=== PATIENT | female | born 1935 | race Caucasian/White ===

== ENCOUNTER → 2017-06-29 14:15 | Outpatient (CLI) | payer MEDICARE, OTHER, SELFPAY ==
--- NOTE | 2017-06-29 14:21 | CA_ITS ---
PROCEDURE: 2-D M-mode and color Doppler study INDICATIONS FOR THE TEST: Chest pain COPD Heart Murmur Tobacco Smoking Palpitations Fatigue Syncope Edema Hypertension Diabetes Mellitus Rheumatic Fever SOB TRAVIS Obesity HyperlipidemiaX Family History HD Additional History AF PATIENT INFORMATION HEIGHT: 63 WEIGHT:152 GENDER: Female B/P:152/72 2-D/M-MODE INTERPRETATION: 2-D MEASUREMENTS OBSERVED VALUES IN CMS Right Ventricular Dimension (RVDd) 2.8 Interventricular Septum (Thickness)(IVsd) .9 Left Ventricular Internal Dimensions(LVIDd) 4.7 Left Ventricular Posterior Wall (Thickness)(LVPWd) 1.1 Aortic Root 2.5 Aortic Cusp Separation 1.6 Left Atrial Dimensions (LAD) 3.9 2D 1. Left atrium is mildly enlarged, left ventricle is normal size, there is no concentric left ventricular hypertrophy, visually estimated ejection fraction 55% with no obvious regional wall motion abnormality. 2. The right atrium is mildly enlarged, right ventricle is normal size and contractility. 3. The aortic valve is minimally thickened and calcified. 4. The mitral valve has mitral annular calcification. 5. The pulmonic valve is poorly visualized. 6. The tricuspid valve leaflets are minimally thickened. 7. No significant pericardial effusion noted. DOPPLER INTERROGATION: Doppler interrogation of the aortic, mitral and tricuspid valvular presence of mild mitral and tricuspid regurgitation, calculated right ventricular systolic pressure is 47 mmHg consistent with the moderate pulmonary hypertension, diastolic parameters are inconclusive. CONCLUSION: 1. Mildly enlarged left atrium, normal left ventricular size, visually estimated ejection fraction 55% with no obvious regional wall motion abnormality, diastolic parameters are inconclusive. 2. Mild mitral and tricuspid regurgitation, calculated right ventricular systolic pressure is 47 mmHg consistent with moderate pulmonary hypertension. 3. No significant pericardial effusion noted.
== END ==
PROVIDERS: Family Provider Family Medicine; PCP Family Medicine; Visit Provider Family Medicine
DX: I48.0 Paroxysmal atrial fibrillation (principal); I34.0 Nonrheumatic mitral (valve) insufficiency; I50.30 Unspecified diastolic (congestive) heart failure
CPT/HCPCS: 93306

== ENCOUNTER → 2019-10-31 10:38 | Outpatient (CLI) | payer MEDICARE, SELFPAY ==
--- NOTE | 2019-10-31 10:43 | CA_ITS ---
APPROVED REPORT EXAM: Comprehensive 2D, Doppler, and color-flow Echocardiogram Skull Chopper: Dian Hernandez RDCS Ht: 5 ft 3 in Wt: 152lbs BSA: 1.72 BP: 150/70 mmHg Indications: AF,HTN,HLP 2D Dimensions LVOT 1.86 cm (M/F) 1.5-2.5 M-Mode Dimensions RVDd 2.77 cm (0.9-2.6) LVDd 5.47 cm (3.5-5.7) LVDs 3.57 cm (3.5-5.7) IVSd 0.68 cm (0.6-1.1) PWd 0.57 cm (0.6-1.1) EF (Teich) 63.40% FS 34.70% EDV (Teich) 145.60 mL ESV (Teich) 53.30 mL LV Diastology E/A Ratio 0.75 Aortic Valve LVOT Max 122.00 (70-110 cm/s) LVOT VTI 30.19 cm Mitral Valve MV A Velocity 100.00 (40-130 cm/s) Left Ventricle Left atrium is mildly enlarged, left ventricle is normal size, mild concentric left ventricular hypertrophy, visually estimated ejection fraction 55% with no regional wall motion abnormality, grade 1 diastolic dysfunction seen without tissue Doppler evidence of raise left atrial pressure. Right Ventricle Right atrium and right ventricle mildly enlarged with normal contractility. Aortic Valve Aortic valve is minimally thickened and fibrosed, there is no aortic stenosis or aortic insufficiency. Mitral Valve Mitral valve has mitral annular calcification, there is no mitral stenosis there is mild mitral regurgitation. Tricuspid Valve Tricuspid valve is grossly normal, there is mild tricuspid regurgitation. Tricuspid regurgitation jet velocity is inadequate for calculation of the right ventricular systolic pressure. Pulmonic Valve Pulmonic valve is poorly visualized. Great Vessels Aortic root is normal size. Pericardium No significant pericardial effusion noted. Conclusion 1. Biatrial enlargement, normal left ventricular size, mild concentric left ventricular hypertrophy, visually estimated ejection fraction 55% with no regional wall motion abnormality, grade 1 diastolic dysfunction seen without tissue Doppler evidence of raise left atrial pressure. 2. Mildly enlarged right ventricle with normal contractility. 3. Mild mitral and tricuspid regurgitation. 4. No significant pericardial effusion noted. Electronically signed by : Oli Renteria 10/31/2019 15:55:28
== END ==
PROVIDERS: PCP Family Medicine; Visit Provider Family Medicine
DX: I48.0 Paroxysmal atrial fibrillation (principal); I51.9 Heart disease, unspecified; I34.0 Nonrheumatic mitral (valve) insufficiency; I10 Essential (primary) hypertension
CPT/HCPCS: 93306

== ENCOUNTER 2020-03-14 06:35 | Emergency (ER) | payer MEDICARE, SELFPAY ==
[2020-03-14] VITALS (10 sets, daily range): BP systolic 136–185; BP diastolic 66–98; PULSE 57–113; RESP 16–26; TEMP 36.7–36.8; O2SAT 93–100; BMI 26.5; BMI 36.1
--- NOTE | 2020-03-14 06:32 | ECG_ITS ---
APPROVED REPORT Exam: Resting ECG HR:85 bpm ECG Measurements Heart Rate 85 AXES WV 134 P 30 QRSd 84 QRS -37 QT 402 T 72 QTc 478 Conclusion Sinus rhythm with occasional premature ventricular complexes and premature atrial complexes Left axis deviation Nonspecific ST and T wave abnormality Prolonged QT Abnormal ECG Electronically signed by : Kenneth London, 03/16/2020 19:43:06
--- NOTE | 2020-03-14 06:34 | HMH.EDGENADL ---
ED Disposition Condition on Discharge: Fair - Critical Care Critical Care Time: No <Christiano Sherwood - Last Filed: 03/14/20 07:44> <Lui Shah - Last Filed: 03/14/20 09:20> Clinical Impression: Dizzy Disposition: Xfer Short-Term Hosp Prescriptions: Meclizine HCl [Meclizine 25mg Tab] 25 mg PO QID PRN 10 Days #40 tab PRN Reason: Dizziness Transmission Status: Received by [facility] Referrals: PCP,No [Primary Care Provider] - Attestation: On 03/14/20, the high probability of a clinically significant, sudden or life threatening deterioration of the following system(s) required my full and direct attention, intervention and personal management. The time I documented below is in addition to time spent performing reported procedures but includes the following listed in this critical care notation. Medical Decision Making - Medical Records Medical records reviewed: Yes: I reviewed the patient's medical records. - Kike Inquiry Pt receiving controlled substance: No - Lab Data Result diagrams: 03/14/20 07:25 <Christiano Sherwood - Last Filed: 03/14/20 07:44> - Lab Data Result diagrams: 03/14/20 07:25 03/14/20 07:25 <Lui Shah - Last Filed: 03/14/20 09:20> Vital Signs: 03/14/20 06:34 03/14/20 07:00 03/14/20 07:30 Temperature 98.0 F Temperature Source Oral Pulse Rate [Apical] 78 62 59 L Respiratory Rate 26 H 17 16 Blood Pressure [Right Arm] 185/95 H 166/86 H 136/74 Blood Pressure Mean [Right Arm] 125 112 94 Blood Pressure Source [Right Arm] Automatic Cuff Automatic Cuff Blood Pressure Position [Right Arm] Supine Supine 02 Sat by Pulse Oximetry 97 93 L 97 Oxygen Delivery Method Room Air Room Air Room Air 03/14/20 08:00 03/14/20 08:30 03/14/20 09:00 Temperature Temperature Source Pulse Rate [Apical] 60 60 58 L Respiratory Rate 16 18 18 Blood Pressure [Right Arm] 145/74 H 166/84 H 166/80 H Blood Pressure Mean [Right Arm] 97 111 108 Blood Pressure Source [Right Arm] Automatic Cuff Blood Pressure Position [Right Arm] Sitting 02 Sat by Pulse Oximetry 96 100 99 Oxygen Delivery Method Room Air Room Air Room Air - Lab Data Lab Results 03/14/20 07:25: Troponin I 0.05 H 03/14/20 07:25: WBC 6.2, RBC 4.35, Hgb 14.2, Hct 41.8, MCV 96.1, MCH 32.6 H, MCHC 33.9, RDW 13.5, Plt Count 255, MPV 7.5, Neut % (Auto) 66.9, Lymph % (Auto) 22.0, [place] % (Auto) 5.9, Eos % (Auto) 4.7, Baso % (Auto) 0.3, Neut # (Auto) 4.2, Lymph # (Auto) 1.4, [place] # (Auto) 0.4, Eos # (Auto) 0.3, Baso # (Auto) 0.0 03/14/20 07:25: Sodium 136, Potassium 3.8, Chloride 105, Carbon Dioxide 27, Anion Gap 7.8, BUN 24 H, Creatinine 0.70, Estimated Creat Clear 54, Estimated GFR 80, Est GFR ( Amer) 96, Glucose 134 H, Calcium 8.6, Total Bilirubin 0.5, Direct Bilirubin 0.2, Conjugated Bilirubin 0.0, Indirect Bilirubin 0.3, Unconjugated Bilirubin 0.3, AST 26, ALT 17, Alkaline Phosphatase 126, Total Protein 6.4, Albumin 3.4 L 03/14/20 07:25: Magnesium 1.8 03/14/20 08:50: Urine Color Yellow, Urine Appearance Cloudy, Urine pH 7.0, Ur Specific M[place]ot 1.015, Urine Protein Negative, Urine Glucose (UA) Negative, Urine Ketones Negative, Urine Blood Negative, Urine Nitrate Negative, Urine Bilirubin Negative, Urine Urobilinogen 0.2, Ur Leukocyte Esterase 1+ A Orders (Tests/Meds): ED MEDICATIONS Generic Name Dose Route Start Last Admin Trade Name Freq PRN Reason Stop Dose Admin Sodium Chloride 10 ml 03/14/20 06:51 Sodium Chloride 0.9% 10ml Vial IV 04/13/20 06:50 NEEDED PRN to Dilute Lorazepam inj Discontinued Medications Generic Name Dose Route Start Last Admin Trade Name Freq PRN Reason Stop Dose Admin Sodium Chloride 1,000 mls @ 999 mls/hr 03/14/20 07:00 03/14/20 07:01 Sod Chlor 0.9% 1000ml Bag IV 03/14/20 08:00 999 mls/hr .Q1H1M DAGO Administration Iopamidol 100 ml 03/14/20 08:40 03/14/20 08:41 Iopamidol-370 (76%);100ml Bottle IV 03/14/20 08:41 100 ml ONCE ONE
--- NOTE | 2020-03-14 06:42 | XR_ITS ---
PROCEDURE: XR CHEST PORTABLE Referring Doctor: Christiano Sherwood Patient Age:84Y CLINICAL HISTORY: dizziness Episodic stable or symptoms COMPARISON: CR CXR CHEST(2 VIEWS-NOT PORTABLE) from 10/10/2014 FINDINGS: AP portable upright chest performed today slightly lordotic projection, and compared to September 2014. Slight coarsening markings towards lung bases appears to reflect some mild chronic changes with nothing definitely acute. No focal pneumonia. No pneumothorax but no pleural effusion. There is mild cardiomegaly. No overt CHF upper normal pulmonary vascularity. The renetta and mediastinal structures satisfactory IMPRESSION: Stable chest with nothing definitely acute Mild cardiomegaly. Minimal chronic appearing pulmonary changes similar to previous 2014 study Dictated by: Rafael Cardoso MD 03/14/2020 18:09 Rafael Cardoso MD in [place] 03/14/2020 18:09
--- NOTE | 2020-03-14 06:43 | CT_ITS ---
Procedure: CT ANGIO NECK CT ANGIO head. Referring Doctor: Christiano Sherwood Patient Age:84Y CLINICAL HISTORY: dizziness and getting 84-year-old COMPARISON: CT CT ANGIO HEAD from 03/14/2020 TECHNIQUE: IV Contrast: 100ml Isovue 370 bolus IV contrast followed normal saline Thin-section helical axial images obtained with axial, sagittal and coronal reformats. CTA mipp post processing on CT workstation performed-[address] scans at the facility use one or more dose reduction, viz: automated exposure control, ma/kV adjustment per patient size (including targeted exams where dose is matched to indication, i.e. head), or iterative reconstruction technique. FINDINGS: --CT angiography neck./CT angiography head: These studies are reviewed together Imaging begins at the aortic arch.. Satisfactory appearance of the great vessels arising from the left-sided aortic arch of minimal atherosclerotic calcification at the aortic arch. No evident the stenosis the origin of great vessels. Normal appearance partially imaged pulmonary artery Vertebrobasilar system and posterior circulation: The the Specifically note that the vertebral arteries origin identified and appears satisfactory bilaterally. Of I would note the are quite tortuous at the proximal most with T1 artery regions bilaterally the the the both vertebral arteries are similar size and a patent to the base of the skull where they unite to form a modest size basilar artery which then leads to the hzkkpp-zw-Iqasxp. At the mciomt-kr-Coallh I would note that there are of patent posterior communicating arteries bilaterally which appear to significantly contribute to the supply of the posterior cerebral arteries bilaterally.. The very small PICA and superior cerebellar artery are slightly branches from the basilar artery are slightly evident on the left than right . No abnormal enhancement is seen at either right or left CP angle region. No enhancing acoustic neuroma evident on these studies. IAC's appear symmetric. The mastoid air cells are appear well developed and clear. No mastoiditis. Middle ear well aerated and clear bilaterally the. Carotids; and anterior intracranial circulation of the origins the carotids appears satisfactory at the aortic arch. Moderately tortuous proximal Common carotid but no remarkable plaque. Common carotid does have medial course bilaterally at lower neck, residing posterior to the thyroid Right carotid bifurcation. Calcification at right bot carotid bifurcation extends into the origin of the right ICA where of where there is up toyield-up 20-25 % focal stenosis at origin of the right ICA. No not hemodynamically significant. Proximal right ICA lumen tapers slightly to 5.2 mm at its most narrow point.. The remainder of the right internal carotid artery appears satisfactory above this level To the the xskpci-no-Jvszjc. Left carotid bifurcation. Only scant non stenotic calcified plaque at the left carotid bifurcation. Of less than 5-10 percent narrowing at the proximal left internal carotid The mildly tortuous left internal carotid then continues are normal fashion to the vbmqnr-ng-Vvdbis . Demijb-dp-Mtbphn the. Generous caliber mildly ectatic proximal carotid siphons bilaterally with. Minimal atherosclerotic calcifications but no significant stenosis.. Normal branching appearance origins and distal branches the the middle cerebral artery bilaterally. Normal appearance to the both anterior cerebral arteries and unremarkable appearance at anterior communicating artery. No aneurysms nor vascular malformations identified at psbbnp-ms-Kkgcje nor elsewhere intracranial. No abnormal areas of enhancement at th
--- NOTE | 2020-03-14 06:43 | CT_ITS ---
Procedure: CT ANGIO NECK CT ANGIO head. Referring Doctor: Christiano Sherwood Patient Age:84Y CLINICAL HISTORY: dizziness and getting 84-year-old COMPARISON: CT CT ANGIO HEAD from 03/14/2020 TECHNIQUE: IV Contrast: 100ml Isovue 370 bolus IV contrast followed normal saline Thin-section helical axial images obtained with axial, sagittal and coronal reformats. CTA mipp post processing on CT workstation performed-[address] scans at the facility use one or more dose reduction, viz: automated exposure control, ma/kV adjustment per patient size (including targeted exams where dose is matched to indication, i.e. head), or iterative reconstruction technique. FINDINGS: --CT angiography neck./CT angiography head: These studies are reviewed together Imaging begins at the aortic arch.. Satisfactory appearance of the great vessels arising from the left-sided aortic arch of minimal atherosclerotic calcification at the aortic arch. No evident the stenosis the origin of great vessels. Normal appearance partially imaged pulmonary artery Vertebrobasilar system and posterior circulation: The the Specifically note that the vertebral arteries origin identified and appears satisfactory bilaterally. Of I would note the are quite tortuous at the proximal most with T1 artery regions bilaterally the the the both vertebral arteries are similar size and a patent to the base of the skull where they unite to form a modest size basilar artery which then leads to the oyagvd-pc-Elgqzs. At the egclal-ec-Oxqokk I would note that there are of patent posterior communicating arteries bilaterally which appear to significantly contribute to the supply of the posterior cerebral arteries bilaterally.. The very small PICA and superior cerebellar artery are slightly branches from the basilar artery are slightly evident on the left than right . No abnormal enhancement is seen at either right or left CP angle region. No enhancing acoustic neuroma evident on these studies. IAC's appear symmetric. The mastoid air cells are appear well developed and clear. No mastoiditis. Middle ear well aerated and clear bilaterally the. Carotids; and anterior intracranial circulation of the origins the carotids appears satisfactory at the aortic arch. Moderately tortuous proximal Common carotid but no remarkable plaque. Common carotid does have medial course bilaterally at lower neck, residing posterior to the thyroid Right carotid bifurcation. Calcification at right bot carotid bifurcation extends into the origin of the right ICA where of where there is up toyield-up 20-25 % focal stenosis at origin of the right ICA. No not hemodynamically significant. Proximal right ICA lumen tapers slightly to 5.2 mm at its most narrow point.. The remainder of the right internal carotid artery appears satisfactory above this level To the the qgoafj-rs-Oqyuqi. Left carotid bifurcation. Only scant non stenotic calcified plaque at the left carotid bifurcation. Of less than 5-10 percent narrowing at the proximal left internal carotid The mildly tortuous left internal carotid then continues are normal fashion to the wxgemi-nn-Riwrvi . Liasej-il-Fjnmop the. Generous caliber mildly ectatic proximal carotid siphons bilaterally with. Minimal atherosclerotic calcifications but no significant stenosis.. Normal branching appearance origins and distal branches the the middle cerebral artery bilaterally. Normal appearance to the both anterior cerebral arteries and unremarkable appearance at anterior communicating artery. No aneurysms nor vascular malformations identified at qpnemh-kq-Bvwhgv nor elsewhere intracranial. No abnormal areas of enhancement at th
[2020-03-14 07:37] LABS: Basophils % 0.3 % (0.1-2.0); Eosinophils # 0.3 K/mm3 (0.0-0.4); Eosinophils % 4.7 % (0.1-12.0); Hematocrit 41.8 % (37.0-47.0); Hemoglobin 14.2 g/dL (12.2-16.2); Lymphocytes # 1.4 K/mm3 (0.7-4.5); Mean Corpuscular HGB Conc 33.9 g/dL (31.8-35.4); Mean Corpuscular Hemoglobin 32.6 pg (27.0-31.2); Mean Corpuscular Volume 96.1 fl (81-99); Mean Platelet Volume 7.5 fl (7.4-10.4); Monocytes # 0.4 K/mm3 (0.1-1.0); Monocytes % 5.9 % (1.7-9.3); Neutrophils # 4.2 K/mm3 (1.8-7.8); Neutrophils % 66.9 % (37.0-80.0); Platelet Count 255 K/mm3 (142-424); Red Blood Count 4.35 M/mm3 (4.20-5.40); Red Cell Distribution Width 13.5 % (11.5-17.5); White Blood Count 6.2 K/mm3 (4.8-10.8)
[2020-03-14 07:41] LABS: Alanine Aminotransferase 17 U/L (12-78); Albumin Level 3.4 g/dl (3.5-5.0); Alkaline Phosphatase 126 U/L (38-126); Anion Gap 7.8 mEq/L (5-15); Aspartate Amino Transferase 26 U/L (14-36); Bilirubin,Direct 0.2 mg/dl (0.0-0.4); Bilirubin,Indirect 0.3 mg/dL (0.0-0.9); Bilirubin,Total 0.5 mg/dl (0.2-1.3); Bilirubin,Unconjugated 0.3 mg/dL (0.0-1.1); Blood Urea Nitrogen 24 mg/dl (7-17); Calcium 8.6 mg/dl (8.4-10.2); Carbon Dioxide 27 mmol/L (22.0-30.0); Chloride 105 mmol/L (98-107); Creatinine Clearance Estimated 54 mL/min (50-200); Estimated Glomerular Filt Rate 80 ml/min (>60); GFR (African American) 96 ML/MIN (>60); Glucose 134 mg/dl (74-100); Magnesium 1.8 mg/dl (1.6-2.3); Potassium 3.8 mmoL/L (3.5-5.1); Sodium 136 mmol/L (136-145); Total Protein,Serum 6.4 g/dl (6.3-8.2)
--- NOTE | 2020-03-14 07:57 | CT_ITS ---
PROCEDURE: CT HEAD/BRAIN WO CON Referring Doctor: Christiano Sherwood Patient Age:84Y CLINICAL INDICATION: dizziness COMPARISON: CT CT ANGIO NECK from 03/14/[address] ANGIO HEAD from 03/14/2020 TECHNIQUE: No IV contrast for this study. Standard axial images were obtained. All CT scans at the facility use one or more dose reduction, viz: automated exposure control, ma/kV adjustment per patient size (including targeted exams where dose is matched to indication, i.e. head), or iterative reconstruction technique. FINDINGS: No acute intracranial findings. No intracranial hemorrhage. Minimal cerebral atrophy age-appropriate. . Minimal physiologic calcification left basal ganglia more so than right most whiactually less apparent on the postcontrast studies t . Ventricles normal size with no hydrocephalus but.The ventricles and basal cisterns appear clear and satisfactory. No mass or midline shift nor mass effect. No subdural or extra-axial fluid collection is evident. Posterior fossa unremarkable. Skull intact- calvarium unremarkable appearance. Nomastoid effusions. Mastoid air cells are well developed and clear. Middle ear clear. IAC's symmetric. Moderate diffuse mucosal thickening at the ethmoid air cells with diffuse mucosal thickening at the the inferior maxillary sinuses.. No air-fluid levels IMPRESSION: No acute intracranial findings . incidental note: Moderate mucosal thickening throughout the ethmoid air cells Mild mucosal thickening inferior maxillary sinuses Dictated by: Rafael Cardoso MD 03/14/2020 09:02 Rafael Cardoso MD in [facility] 03/14/2020 09:02
[2020-03-14 07:59] LABS: Troponin I 0.05 ng/ml (0.00-0.034)
--- NOTE | 2020-03-14 09:01 | PC.NURSE ---
pt and family updated on plan of care
[2020-03-14 09:05] LABS: Microscopic, Urine URINE MICROSCOPIC (MICROSCOPIC)
[2020-03-14 09:06] LABS: Appearance,Urine CLOUDY (Clear); Bilirubin,Urine Negative (Negative); Blood, Urine Negative (Negative); Color,Urine YELLOW (Yellow); Glucose,Urine (UA) Negative (Negative); Ketones,Urine Negative (Negative); Leukocyte Esterase,Urine 1+ (Negative); Nitrate,Urine Negative (Negative); Protein,Urine Negative (Negative); Specific Gravity, Urine 1.015 (1.005-1.030); Urobilinogen,Urine 0.2 EU/dl (0.2)
--- NOTE | 2020-03-14 09:12 | PC.NURSE ---
[facility] called regarding possible transfer
[2020-03-14 09:54] LABS: RBC,Urine Occasional #/hpf (0-3)
[2020-03-14 09:55] LABS: Bacteria,Urine Trace /lpf
[2020-03-14 09:55] LABS: Coronavirus 19 IgG Antibody Positive (Negative); Coronavirus 19 IgM Antibody Negative (Negative)
== END 2020-03-14 11:20 | disposition short-term general hospital (02) ==
PROVIDERS: Physician Assistant; Emergency Provider Emergency Medicine
DX: R42 Dizziness and giddiness (principal); I48.91 Unspecified atrial fibrillation; E78.5 Hyperlipidemia, unspecified; Z01.84 Encounter for antibody response examination; Z88.5 Allergy status to narcotic agent
CPT/HCPCS: 70450; 70496; 70498; 71045; 80048; 80076; 81001; 83735; 84484; 85025; 86328; 87086; 93005; 96365; 96375; 99284; J2405; Q9967

== ENCOUNTER 2020-11-15 12:56 | Emergency (ER) | payer MEDICARE, SELFPAY ==
[2020-11-15] VITALS (14 sets, daily range): BP systolic 134–186; BP diastolic 69–90; PULSE 56–76; RESP 11–22; TEMP 36.6–36.8; O2SAT 95–98; BMI 31.8
--- NOTE | 2020-11-15 13:03 | CT_ITS ---
PROCEDURE INFORMATION: Exam: CT Head Without Contrast Exam date and time: 11/15/2020 1:03 PM Age: 85 years old Clinical indication: Injury or trauma; Fall; Concussion/head injury; Without loss of consciousness; Additional info: Trauma; Fall down 3 stairs TECHNIQUE: Imaging protocol: Computed tomography of the head without contrast. Radiation optimization: All CT scans at this facility use at least one of these dose optimization techniques: automated exposure control; mA and/or kV adjustment per patient size (includes targeted exams where dose is matched to clinical indication); or iterative reconstruction. COMPARISON: CT HEAD/BRAIN WO CON 03/14/2020 8:05 AM FINDINGS: Brain: Mild generalized cerebral volume loss and mild patchy white matter hypoattenuation, commonly secondary to chronic small vessel ischemic change. No evidence of acute ischemic infarction within constraints of limited axial single planar imaging technique. Suspect trace subarachnoid hemorrhage in the bilateral inferior frontal sulci, difficult to confirm lacking multiplanar imaging given clinical site imaging limitations. Cerebral ventricles: No ventriculomegaly. Paranasal sinuses: Moderate paranasal sinus mucosal thickening. Mastoid air cells: Visualized mastoid air cells are well aerated. Orbital cavity: Bilateral lens replacements. Bones/joints: No acute fracture. Soft tissues: Unremarkable. IMPRESSION: Suspect trace subarachnoid hemorrhage in the bilateral inferior frontal sulci, difficult to confirm lacking standard multiplanar imaging projections due to clinical site imaging limitations.
--- NOTE | 2020-11-15 13:03 | XR_ITS ---
PROCEDURE INFORMATION: Exam: XR Chest Exam date and time: 11/15/2020 1:03 PM Age: 85 years old Clinical indication: Injury or trauma; Fall; Blunt trauma (contusions or hematomas); Additional info: Trauma; Fall down 3 stairs TECHNIQUE: Imaging protocol: XR of the chest. Views: 4 or more views. COMPARISON: CR XR CHEST PORTABLE 03/14/2020 8:21 AM FINDINGS: Lungs: Unremarkable. No consolidation. Pleural spaces: Unremarkable. No pleural effusion. No pneumothorax. Heart/Mediastinum: Stable cardiac silhouette Bones/joints: Degenerative changes in the glenohumeral joints. The clavicles are not seen on this study. IMPRESSION: No acute process
--- NOTE | 2020-11-15 13:03 | XR_ITS ---
PROCEDURE INFORMATION: Exam: XR Right Shoulder Exam date and time: 11/15/2020 1:03 PM Age: 85 years old Clinical indication: Injury or trauma; Fall; Blunt trauma (contusions or hematomas); Shoulder; Right; Additional info: Trauma; Fall down 3 stairs TECHNIQUE: Imaging protocol: XR Right shoulder. Views: 2 or more views. COMPARISON: CR XR CHEST PORTABLE 03/14/2020 8:21 AM FINDINGS: Bones/joints: The clavicle is elevated with respect to the acromion on these images. This was not present on the images of the clavicle. 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 There is a lucency in the distal aspect of the clavicle which could represent nondisplaced fracture. Degenerative changes in the acromioclavicular joint and glenohumeral joint. Soft tissues: Normal. IMPRESSION: The clavicle is elevated with respect to the acromion on these images. This was not present on the images of the clavicle. 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 There is a lucency in the distal aspect of the clavicle which could represent nondisplaced fracture.
--- NOTE | 2020-11-15 13:03 | CT_ITS ---
PROCEDURE INFORMATION: Exam: CT Cervical Spine Without Contrast Exam date and time: 11/15/2020 1:03 PM Age: 85 years old Clinical indication: Injury or trauma; Fall; Sprain or strain, cervical ligaments; Additional info: Trauma; Fall down 3 stairs TECHNIQUE: Imaging protocol: Computed tomography images of the cervical spine without contrast. Radiation optimization: All CT scans at this facility use at least one of these dose optimization techniques: automated exposure control; mA and/or kV adjustment per patient size (includes targeted exams where dose is matched to clinical indication); or iterative reconstruction. COMPARISON: CT ANGIO NECK 03/14/2020 8:10 AM FINDINGS: Bones/joints: Nondisplaced right posterior 2nd rib fracture (series 3, image 55). Severe chronic appearing degenerative change about the dens with multiple osteophytes. No acute cervical spine fracture or traumatic malalignment. Discs/Spinal canal/Neural foramina: Severe multilevel facet arthrosis. Lungs: Lung apices are normal. Soft tissues: Unremarkable. IMPRESSION: 1. No acute cervical spine fracture or traumatic malalignment. 2. Nondisplaced right posterior 2nd rib fracture.
--- NOTE | 2020-11-15 13:03 | XR_ITS ---
PROCEDURE INFORMATION: Exam: XR Right Clavicle, Complete Exam date and time: 11/15/2020 1:03 PM Age: 85 years old Clinical indication: Injury or trauma; Fall; Blunt trauma (contusions or hematomas); Shoulder; Right; Additional info: Trauma; Fall down 3 stairs TECHNIQUE: Imaging protocol: XR Right clavicle complete. Views: Any number of views. COMPARISON: CR XR CHEST PORTABLE 03/14/2020 8:21 AM FINDINGS: Bones/joints: No fracture of the clavicle.. Degenerative changes in the acromioclavicular joint and glenohumeral joint. There is no evidence of acute fracture.There is no evidence of malalignment or dislocation. Soft tissues: Normal. IMPRESSION: 1. No fracture of the clavicle.. 2. There is no evidence of acute fracture.There is no evidence of malalignment or dislocation.
--- NOTE | 2020-11-15 13:03 | XR_ITS ---
PROCEDURE INFORMATION: Exam: XR Pelvis Exam date and time: 11/15/2020 1:03 PM Age: 85 years old Clinical indication: Injury or trauma; Fall; Blunt trauma (contusions or hematomas); Does not apply; Pelvic region; Additional info: Trauma; Fall down 3 stairs TECHNIQUE: Imaging protocol: XR pelvis. Views: 1 or 2 view. COMPARISON: No relevant prior studies available. FINDINGS: Bones/joints: Degenerative changes in both hips; There is no evidence of acute fracture.There is no evidence of malalignment or dislocation. Soft tissues: Unremarkable. IMPRESSION: There is no evidence of acute fracture.There is no evidence of malalignment or dislocation.
--- NOTE | 2020-11-15 13:15 | HMH.EDGENADL ---
ED Disposition Clinical Impression: Dislocation of AC joint, closed Qualifiers: Encounter type: initial encounter Laterality: right Qualified Code(s): S43.101A - Unspecified dislocation of right acromioclavicular joint, initial encounter Fall Qualifiers: Encounter type: initial encounter Qualified Code(s): W19.XXXA - Unspecified fall, initial encounter Head injury Qualifiers: Encounter type: initial encounter Qualified Code(s): S09.90XA - Unspecified injury of head, initial encounter Rib fracture Qualifiers: Encounter type: initial encounter Rib fracture type: single rib Fracture type: closed Laterality: right Qualified Code(s): S22.31XA - Fracture of one rib, right side, initial encounter for closed fracture Disposition: Home, Self-Care Condition on Discharge: Good Instructions: DI for Rib Fracture, DI for AC Joint Separation Prescriptions: Lidocaine [Lidoderm 5% transdermal patch] 1 each TP Q24H #10 patch Transmission Status: Pending to [facility] methocarbamoL [Methocarbamol 500mg Tablet] 750 mg PO TID 10 Days #30 tab Transmission Status: Pending to [facility] - Critical Care Critical Care Time: No Attestation: On , the high probability of a clinically significant, sudden or life threatening deterioration of the following system(s) required my full and direct attention, intervention and personal management. The time I documented below is in addition to time spent performing reported procedures but includes the following listed in this critical care notation. Medical Decision Making - Medical Records Medical records reviewed: Yes: I reviewed the patient's medical records. - Kike Inquiry Pt receiving controlled substance: No Vital Signs: 11/15/20 12:56 11/15/20 14:03 11/15/20 14:30 Temperature 98 F Temperature Source Oral Pulse Rate 56 L 62 Pulse Rate [Radial] 75 Respiratory Rate 20 18 11 L Blood Pressure 163/80 H 186/90 H Blood Pressure [Right Arm] 162/85 H Blood Pressure Mean Blood Pressure Mean [Right Arm] 110 Blood Pressure Position [Right Arm] Sitting 02 Sat by Pulse Oximetry 98 97 96 Oxygen Delivery Method Room Air 11/15/20 15:00 11/15/20 15:45 11/15/20 16:00 Temperature Temperature Source Pulse Rate 73 56 L 62 Pulse Rate [Radial] Respiratory Rate 14 11 L 22 Blood Pressure 169/88 H 170/89 H 158/87 H Blood Pressure [Right Arm] Blood Pressure Mean Blood Pressure Mean [Right Arm] Blood Pressure Position [Right Arm] 02 Sat by Pulse Oximetry 95 97 96 Oxygen Delivery Method 11/15/20 16:30 11/15/20 17:00 11/15/20 17:30 Temperature Temperature Source Pulse Rate 61 65 76 Pulse Rate [Radial] Respiratory Rate 16 14 14 Blood Pressure 140/75 134/70 141/69 H Blood Pressure [Right Arm] Blood Pressure Mean 96 88 98 Blood Pressure Mean [Right Arm] Blood Pressure Position [Right Arm] 02 Sat by Pulse Oximetry Oxygen Delivery Method 11/15/20 18:01 11/15/20 18:30 Temperature Temperature Source Pulse Rate 60 66 Pulse Rate [Radial] Respiratory Rate 17 14 Blood Pressure 144/80 H 148/73 H Blood Pressure [Right Arm] Blood Pressure Mean 91 98 Blood Pressure Mean [Right Arm] Blood Pressure Position [Right Arm] 02 Sat by Pulse Oximetry 96 Oxygen Delivery Method - Lab Data Lab Results 11/15/20 14:07: WBC 7.1, RBC 4.49, Hgb 14.5, Hct 43.7, MCV 97.4, MCH 32.3 H, MCHC 33.2, RDW 13.1, Plt Count 264, MPV 7.8, Neut % (Auto) 72.5, Lymph % (Auto) 19.0, [place] % (Auto) 5.6, Eos % (Auto) 2.7, Baso % (Auto) 0.2, Neut # (Auto) 5.1, Lymph # (Auto) 1.3, [place] # (Auto) 0.4, Eos # (Auto) 0.2, Baso # (Auto) 0.0 11/15/20 14:07: Sodium 137, Potassium 4.0, Chloride 105, Carbon Dioxide 24, Anion Gap 12.0, BUN 19 H, Creatinine 0.80, Estimated Creat Clear 52, Estimated GFR 68, Est GFR ( Amer) 82, Glucose 99, Calcium 8.7, Total Bilirubin 0.6, AST 33, ALT 17, Alkaline Phosphatase 136 H, Total Protein 6.4,
--- NOTE | 2020-11-15 13:47 | PC.NURSE ---
BERNADINE LEONARD speaking with Beatriz
[2020-11-15 14:23] LABS: Basophils % 0.2 % (0.1-2.0); Eosinophils # 0.2 K/mm3 (0.0-0.4); Eosinophils % 2.7 % (0.1-12.0); Hematocrit 43.7 % (37.0-47.0); Hemoglobin 14.5 g/dL (12.2-16.2); Lymphocytes # 1.3 K/mm3 (0.7-4.5); Mean Corpuscular HGB Conc 33.2 g/dL (31.8-35.4); Mean Corpuscular Hemoglobin 32.3 pg (27.0-31.2); Mean Corpuscular Volume 97.4 fl (81-99); Mean Platelet Volume 7.8 fl (7.4-10.4); Monocytes # 0.4 K/mm3 (0.1-1.0); Monocytes % 5.6 % (1.7-9.3); Neutrophils # 5.1 K/mm3 (1.8-7.8); Neutrophils % 72.5 % (37.0-80.0); Platelet Count 264 K/mm3 (142-424); Red Blood Count 4.49 M/mm3 (4.20-5.40); Red Cell Distribution Width 13.1 % (11.5-17.5); White Blood Count 7.1 K/mm3 (4.8-10.8)
[2020-11-15 14:28] LABS: Chloride 105 mmol/L (98-107); Sodium 137 mmol/L (136-145)
[2020-11-15 14:31] LABS: Alanine Aminotransferase 17 U/L (12-78); Albumin Level 3.6 g/dl (3.5-5.0); Albumin/Globulin Ratio 1.3 (1.1-1.8); Alkaline Phosphatase 136 U/L (38-126); Aspartate Amino Transferase 33 U/L (14-36); Bilirubin,Total 0.6 mg/dl (0.2-1.3); Blood Urea Nitrogen 19 mg/dl (7-17); Calcium 8.7 mg/dl (8.4-10.2); Carbon Dioxide 24 mmol/L (22.0-30.0); Creatinine Clearance Estimated 52 mL/min (50-200); Estimated Glomerular Filt Rate 68 ml/min (>60); GFR (African American) 82 ML/MIN (>60); Globulin 2.8 g/dL (1.3-3.2); Glucose 99 mg/dl (74-100); Lipase 105 U/L (23-300); Total Protein,Serum 6.4 g/dl (6.3-8.2)
--- NOTE | 2020-11-15 14:57 | PC.NURSE ---
BERNADINE LEONARD speaking with [facility] at this time
--- NOTE | 2020-11-15 15:46 | PC.NURSE ---
pt scooted up in bed and repositioned at this time
--- NOTE | 2020-11-15 15:53 | PC.NURSE ---
Pt given a sandwich, ok'd
--- NOTE | 2020-11-15 19:00 | CT_ITS ---
PROCEDURE INFORMATION: Exam: CT Chest With Contrast; Diagnostic Exam date and time: 11/15/2020 7:00 PM Age: 85 years old Clinical indication: Injury or trauma; Fall; Blunt trauma (contusions or hematomas); Injury date: 11/15/2020; Additional info: Fall; 2nd post rib FX on CT c-spine TECHNIQUE: Imaging protocol: Diagnostic computed tomography of the chest with contrast. 3D rendering (Not supervised by radiologist): MIP and/or 3D reconstructed images were created by the technologist. Radiation optimization: All CT scans at this facility use at least one of these dose optimization techniques: automated exposure control; mA and/or kV adjustment per patient size (includes targeted exams where dose is matched to clinical indication); or iterative reconstruction. Contrast material: ISOVUE; Contrast volume: 70 ml; Contrast route: IV; COMPARISON: CR XR CHEST AP 11/15/2020 1:26 PM FINDINGS: Lungs: A group of 3 calcified granulomas are identified within the right upper lobe, and a 4th is identified within the right middle lobe. Chronic parenchymal changes identified. No evidence of consolidation or mass. Minimal atelectasis within the lingula. Pleural spaces: Unremarkable. No pneumothorax. No pleural effusion. Heart: Mild cardiomegaly. No pericardial effusion. Coronary arteries: There is atheromatous calcification within the proximal left coronary artery. Mediastinal space: Granulomatous calcified lymph nodes identified within the subcarinal region and right hilus. Aorta: Atheromatous arterial calcification noted. No aortic aneurysm. Lymph nodes: Unremarkable. No enlarged lymph nodes. Bones/joints: Spinal degenerative changes are noted. A subtle nondisplaced fracture of the posterior aspect of the right 2nd rib is again identified. Soft tissues: Small hiatal hernia above the gastroesophageal junction. There are calcified gallstones along the dependent portion of the gallbladder. Granulomatous calcifications present within the spleen. There is atheromatous calcification of the aorta. IMPRESSION: 1. Nondisplaced subtle fracture of the posterior aspect of the right 2nd rib is identified. 2. No evidence of acute traumatic injury to either lung field or to the heart or mediastinum. 3. 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 4. Small hiatal hernia above the gastroesophageal junction. 5. Cholelithiasis.
--- NOTE | 2020-11-15 19:00 | CT_ITS ---
PROCEDURE INFORMATION: Exam: CT Head Without Contrast Exam date and time: 11/15/2020 7:00 PM Age: 85 years old Clinical indication: Injury or trauma; Fall; Blunt trauma (contusions or hematomas); Without loss of consciousness; Injury date: 11/15/2020; Additional info: Repeat head CT 6 hour post prior scan. RO subdural TECHNIQUE: Imaging protocol: Computed tomography of the head without contrast. 3D rendering (Not supervised by radiologist): MIP and/or 3D reconstructed images were created by the technologist. Radiation optimization: All CT scans at this facility use at least one of these dose optimization techniques: automated exposure control; mA and/or kV adjustment per patient size (includes targeted exams where dose is matched to clinical indication); or iterative reconstruction. COMPARISON: CT HEAD/BRAIN WO CON 11/15/2020 1:16 PM FINDINGS: Brain: Previously described trace subarachnoid hemorrhages along the inferior margins of frontal sulci are not appreciated on the present examination. Mild central cerebral atrophy again identified, appropriate to patient's age. No evidence of intraparenchymal hemorrhage. No evidence of subdural fluid collection. Cerebral ventricles: No ventriculomegaly. Paranasal sinuses: Mild mucosal thickening of the ethmoidal and maxillary sinuses. Developmental non aeration of the frontal sinuses. The sphenoidal sinuses appear well aerated. No fluid levels. Mastoid air cells: Visualized mastoid air cells are well aerated. Vasculature: Intraranial artery density is normal. Bones/joints: Unremarkable. No acute fracture. Soft tissues: Bilateral cataract surgery is identified. IMPRESSION: Previously suspect subarachnoid hemorrhages along the inferior margins of the frontal lobes not identified on this examination. There is mild central age related cerebral atrophy identified. Low level and probably chronic sinusitis of the ethmoidal and maxillary sinuses. Bilateral cataract surgery is identified.
== END 2020-11-15 20:33 | disposition home or self-care (01) ==
PROVIDERS: Emergency Provider Emergency Medicine
DX: S43.101A Unspecified dislocation of right acromioclavicular joint, initial encounter (principal); S22.31XA Fracture of one rib, right side, initial encounter for closed fracture; S09.90XA Unspecified injury of head, initial encounter; I48.0 Paroxysmal atrial fibrillation; I10 Essential (primary) hypertension; W10.9XXA Fall (on) (from) unspecified stairs and steps, initial encounter; Y92.017 Garden or yard in single-family (private) house as the place of occurrence of the external cause
CPT/HCPCS: 70450; 71045; 71260; 72125; 72170; 73000; 73030; 80053; 83690; 85025; 96365; 96375; 99283; J2405; Q9967

== ENCOUNTER 2021-02-24 11:55 | Emergency (ER) | payer MEDICARE, SELFPAY ==
[2021-02-24 12:29] VITALS: BP 135/50; PULSE 74; RESP 18; TEMP 36.8; O2SAT 99; BMI 26.9
[2021-02-24 13:35] VITALS: BP 130/66; PULSE 60; RESP 18; TEMP 36.9; O2SAT 96; BMI 29.2
--- NOTE | 2021-02-24 13:50 | HMH.EDUTC ---
[facility] [place] Disposition Clinical Impression: Otitis media Qualifiers: Otitis media type: unspecified Laterality: right Qualified Code(s): H66.91 - Otitis media, unspecified, right ear Disposition: Home, Self-Care Condition on Discharge: Good Instructions: Middle Ear Infection, Amoxicillin Additional Instructions: *Monitor Temp, Over the counter Motrin or Tylenol as directed/as needed Tylenol every 4 hours and Motrin every 6 hours (as long as your family doctor has told you that you can take it) for fever or pain. and straight to ER if unable to lower temp less than 101.0 after medication given *Warm salt water gargles may help to soothe the throat *Throat Lozenges *Warm fluids like tea with honey may help to soothe the throat *Sleep elevated *Humidifier/Vaporizer *Flonase 2 sprays in each nostril daily but be aware that it may take 2-3 days before you notice improvement Take medication as prescribed for length of time prescribed Follow up IMMEDIATELY for new or worsening symptoms or no Noticeable improvement over the next 48-72 hours. 911 for difficulty breathing or swallowing Prescriptions: Amoxicillin [Amoxicillin 500mg Cap] 500 mg PO TID #30 cap Transmission Status: Pending to [facility] Fluticasone Propionate [Flonase 50mcg nasal spray 16gm] 1 spr NS DAILY #1 each Transmission Status: Pending to [facility] Referrals: Kenneth Powers MD [Primary Care Provider] - As needed Forms: Work/School Release Time of Disposition: 14:00 Medical Decision Making - Kike Inquiry Pt receiving controlled substance: No Kike was queried for this patient: No Vital Signs: 02/24/21 12:29 02/24/21 13:35 Temperature 98.3 F 98.4 F Temperature Source Oral Oral Pulse Rate [Right Radial] 74 60 Respiratory Rate 18 18 Blood Pressure [Right Arm] 135/50 L 130/66 Blood Pressure Mean [Right Arm] 78 87 Blood Pressure Source [Right Arm] Automatic Cuff Automatic Cuff Blood Pressure Position [Right Arm] Sitting Sitting 02 Sat by Pulse Oximetry 99 96 Oxygen Delivery Method Room Air Room Air [facility] [place] HPI - General Stated complaint: pain behind rt ear Time Seen by Provider: 02/24/21 13:50 Mode of Arrival: Ambulatory Source of Information: Patient Limitations: No Limitations Description of Symptoms (Recalled from Triage Doc. by RN): PATIENT C/O PAIN IN RIGHT JAW AND BEHIND RIGHT EAR SINCE THIS MORNING HEENT Symptoms (Recalled from RN notes): Yes Resp Symptoms (Recalled from RN notes): No Skin Symptoms (Recalled from RN notes): No MS Symptoms (Recalled from RN notes): No Functional Status (Recalled from RN notes): WNL - History of Present Illness Provider Complaint: Patient state that she has been having pain behind right ear since this morning with pressure like feeling in her ears States that she feels like when she tries to chew it causes pain in her right ear so she came in to get checked out - Related Data Home Medications Medication Instructions Recorded Confirmed Meclizine HCl [Antivert 25mg 25 mg PO DAILY 03/14/20 03/14/20 tablet] Rosuvastatin Calcium [Crestor 5mg 5 mg PO DAILY 03/14/20 03/14/20 Tablets] atenoloL [Atenolol 25mg Tab] 25 mg PO DAILY 03/14/20 03/14/20 Previous Rx's Medication Instructions Recorded Amoxicillin [Amoxicillin 500mg 500 mg PO TID #30 cap 02/24/21 Cap] Fluticasone Propionate [Flonase 1 spr NS DAILY #1 each 02/24/21 50mcg nasal spray 16gm] Allergies Allergy/AdvReac Type Severity Reaction Status Date / Time codeine Allergy Verified 02/24/21 13:46 - Worker's Comp Is this a Worker's Comp case?: No H History - Hepatitis A Screen Drug use history?: No High risk sexual behaviors?: No History of sexually transmitted infection?: No Currently employed?: No Childcare worker?: No Do you have indoor plumbing?: Yes Do you have electricity?: Yes Attestation statement:: This patient has been screened for Hepatitis A risk factors. I have revie
[2021-02-24 14:01] VITALS: BP 130/66; PULSE 60; RESP 18; TEMP 36.9; O2SAT 96
== END 2021-02-24 14:05 | disposition home or self-care (01) ==
LOC: ER 12:19 → UTC 12:19
PROVIDERS: Emergency Provider Nurse Practitioner; PCP Family Medicine
DX: H66.91 Otitis media, unspecified, right ear (principal); I48.91 Unspecified atrial fibrillation; I10 Essential (primary) hypertension; Z88.5 Allergy status to narcotic agent
CPT/HCPCS: G0463; 99202

== ENCOUNTER → 2021-03-19 13:49 | Outpatient (CLI) | payer MEDICARE, SELFPAY ==
--- NOTE | 2021-03-19 13:56 | XR_ITS ---
FINAL REPORT CLINICAL HISTORY: BL knee pain FINDINGS: RIGHT KNEE 4 views of the right knee were obtained. There is no acute fracture or dislocation. There are severe degenerative changes which are greatest involving the medial compartment. There is a chronic deformity of the medial femoral condyle. There is no significant joint effusion. Soft tissues are unremarkable. IMPRESSION: Severe degenerative changes, greatest involving the medial compartment. Reviewed, Interpreted and Dictated by Dharmesh Marcum III, MD Transcribed by Ivonne Gonzales Authenticated by Dharmesh Marcum III, MD on 03/19/2021 02:41:56 PM [facility]
--- NOTE | 2021-03-19 13:56 | XR_ITS ---
FINAL REPORT CLINICAL HISTORY: BL knee pain FINDINGS: RIGHT KNEE 3 views of the right knee were obtained. There is no acute fracture or dislocation. There are severe degenerative changes which are greatest involving the medial compartment. There is a chronic deformity of the medial femoral condyle and the medial tibial plateau. There is a moderate joint effusion. Soft tissues are unremarkable. IMPRESSION: Severe degenerative changes greatest involving the medial compartment. Moderate joint effusion. Reviewed, Interpreted and Dictated by Dharmesh Marcum III, MD Transcribed by Ivonne Gonzales Authenticated by Dharmesh Marcum III, MD on 03/19/2021 02:31:37 PM [facility]
== END ==
PROVIDERS: PCP Family Medicine; Visit Provider Orthopaedic Surgery
DX: M25.561 Pain in right knee (principal); M25.562 Pain in left knee
CPT/HCPCS: 73564

== ENCOUNTER 2021-05-10 20:50 | Emergency (ER) | payer MEDICARE, SELFPAY ==
[2021-05-10 20:52] VITALS: BP 177/91; PULSE 72; RESP 18; TEMP 36.7; O2SAT 97; BMI 27.3
--- NOTE | 2021-05-10 20:53 | ECG_ITS ---
APPROVED REPORT Exam: Resting ECG HR:75 bpm ECG Measurements Heart Rate 75 AXES MI 145 P 60 QRSd 90 QRS -66 QT 394 T 66 QTc 423 Conclusion SINUS RHYTHM WITH MARKED SINUS ARRHYTHMIA PATTERN CONSISTENT WITH PULMONARY DISEASE LEFT ANTERIOR FASCICULAR BLOCK [QRS AXIS <= -45, QR IN I, RS IN II] ABNORMAL ECG UNCONFIRMED REPORT Electronically signed by : Kenneth London MD 05/11/2021 14:06:40
--- NOTE | 2021-05-10 20:58 | CT_ITS ---
PROCEDURE INFORMATION: Exam: CT Abdomen And Pelvis With Contrast Exam date and time: 05/10/2021 8:58 PM Age: 85 years old Clinical indication: Vomiting; Additional info: N/v TECHNIQUE: Imaging protocol: Computed tomography of the abdomen and pelvis with contrast. Radiation optimization: All CT scans at this facility use at least one of these dose optimization techniques: automated exposure control; mA and/or kV adjustment per patient size (includes targeted exams where dose is matched to clinical indication); or iterative reconstruction. Contrast material: ISOVUE; Contrast volume: 75 ml; Contrast route: IV; COMPARISON: CR XR PELVIS 1-2V 11/15/2020 1:26 PM FINDINGS: Liver: Normal. No mass. Gallbladder and bile ducts: Gallstone. Pancreas: Normal. No ductal dilation. Spleen: Normal. No splenomegaly. Adrenal glands: Normal. No mass. Kidneys and ureters: Normal. No hydronephrosis. Stomach and bowel: Diverticulosis in the sigmoid without diverticulitis. Constipation. No colitis. Moderately distended loops of small bowel in the left side of the abdomen with fluid findings which could reflect enteritis. Distended stomach with air-fluid level. Appendix: Normal appendix. Intraperitoneal space: Unremarkable. No free air. No significant fluid collection. Vasculature: Arthrosclerotic calcifications in the aorta. Lymph nodes: Unremarkable. No enlarged lymph nodes. Urinary bladder: Unremarkable as visualized. Reproductive: Unremarkable as visualized. Bones/joints: Unremarkable. No acute fracture. Soft tissues: Unremarkable. IMPRESSION: 1. Moderately distended loops of small bowel left side of the abdomen with fluid and distended stomach with air-fluid level and these findings are concerning for gastroenteritis and diarrhea. 2. Gallstone. 3. Appendix is normal. 4. Kidneys normal.
[2021-05-10 21:06] LABS: Basophils # 0.1 K/mm3 (0-0.2); Basophils % 0.8 % (0.1-2.0); Eosinophils # 0.2 K/mm3 (0.0-0.4); Eosinophils % 1.4 % (0.1-12.0); Hematocrit 48.8 % (37.0-47.0); Lymphocytes # 1.3 K/mm3 (0.7-4.5); Lymphocytes % 10.2 % (10-50); Mean Corpuscular HGB Conc 32.8 g/dL (31.8-35.4); Mean Corpuscular Hemoglobin 33.2 pg (27.0-31.2); Mean Corpuscular Volume 101.2 fl (81-99); Mean Platelet Volume 7.6 fl (7.4-10.4); Monocytes # 0.4 K/mm3 (0.1-1.0); Monocytes % 2.8 % (1.7-9.3); Neutrophils % 84.8 % (37.0-80.0); Platelet Count 332 K/mm3 (142-424); Red Blood Count 4.82 M/mm3 (4.20-5.40); Red Cell Distribution Width 13.7 % (11.5-17.5); White Blood Count 12.9 K/mm3 (4.8-10.8)
[2021-05-10 21:17] LABS: Alanine Aminotransferase 21 U/L (12-78); Albumin Level 4.4 g/dl (3.5-5.0); Albumin/Globulin Ratio 1.4 (1.1-1.8); Alkaline Phosphatase 152 U/L (38-126); Amylase 240 U/L (30-110); Anion Gap 8.9 mEq/L (5-15); Aspartate Amino Transferase 30 U/L (14-36); Bilirubin,Total 0.6 mg/dl (0.2-1.3); Blood Urea Nitrogen 20 mg/dl (7-17); Carbon Dioxide 29 mmol/L (22.0-30.0); Chloride 103 mmol/L (98-107); Creatinine Clearance Estimated 45 mL/min (50-200); Estimated Glomerular Filt Rate 79 ml/min (>60); GFR (African American) 96 ML/MIN (>60); Globulin 3.1 g/dL (1.3-3.2); Glucose 116 mg/dl (74-100); Potassium 3.9 mmoL/L (3.5-5.1); Sodium 137 mmol/L (136-145); Total Protein,Serum 7.5 g/dl (6.3-8.2)
[2021-05-10 21:21] LABS: Lipase 1484 U/L (23-300)
--- NOTE | 2021-05-10 21:23 | PC.NURSE ---
notified mary lou of critical lipase of [id number]
[2021-05-10 21:30] LABS: Coronavirus 19, PCR Not Detected (NotDetected); Influenza A, PCR Not Detected (NotDetected); Influenza B, PCR Not Detected (NotDetected)
[2021-05-10 21:36] LABS: Erythrocyte Sedimentation Rate 23 mm/hr (0-30)
--- NOTE | 2021-05-10 21:37 | PC.NURSE ---
PATIENT TO XRAY
--- NOTE | 2021-05-10 21:37 | HMH.EDNVD ---
ED Disposition Clinical Impression: Pancreatitis Qualifiers: Chronicity: acute Pancreatitis type: unspecified pancreatitis type Acute pancreatitis complication: no infection or necrosis Qualified Code(s): K85.90 - Acute pancreatitis without necrosis or infection, unspecified Gallstone Qualifiers: Cholecystitis presence: without cholecystitis Biliary obstruction: without biliary obstruction Qualified Code(s): K80.20 - Calculus of gallbladder without cholecystitis without obstruction Disposition: Home, Self-Care Condition on Discharge: Good Instructions: DI for Pancreatitis Additional Instructions: call pcp in am and reckeck if needed Referrals: Kenneth Powers MD [Primary Care Provider] - - Critical Care Critical Care Time: No Attestation: On 05/10/21, the high probability of a clinically significant, sudden or life threatening deterioration of the following system(s) required my full and direct attention, intervention and personal management. The time I documented below is in addition to time spent performing reported procedures but includes the following listed in this critical care notation. Medical Decision Making - Medical Records Medical records reviewed: Yes: I reviewed the patient's medical records. - Kike Inquiry Pt receiving controlled substance: No Vital Signs: 05/10/21 20:52 05/10/21 21:43 05/10/21 22:00 Temperature 98.0 F Temperature Source Oral Pulse Rate 82 74 Pulse Rate [Right] 72 Respiratory Rate 18 Blood Pressure 131/75 148/77 H Blood Pressure [Right Arm] 177/91 H Blood Pressure Mean 102 94 Blood Pressure Mean [Right Arm] 119 02 Sat by Pulse Oximetry 97 95 98 Oxygen Delivery Method 05/10/21 22:31 05/10/21 23:23 Temperature Temperature Source Pulse Rate 71 Pulse Rate [Right] Respiratory Rate Blood Pressure 136/67 Blood Pressure [Right Arm] Blood Pressure Mean 84 Blood Pressure Mean [Right Arm] 02 Sat by Pulse Oximetry 96 Oxygen Delivery Method Room Air - Lab Data Lab results reviewed: Yes: I reviewed the patient's lab results. Lab Results 05/10/21 21:00: WBC 12.9 H, RBC 4.82, Hgb 16.0, Hct 48.8 H, MCV 101.2 H, MCH 33.2 H, MCHC 32.8, RDW 13.7, Plt Count 332, MPV 7.6, Neut % (Auto) 84.8 H, Lymph % (Auto) 10.2, [place] % (Auto) 2.8, Eos % (Auto) 1.4, Baso % (Auto) 0.8, Neut # (Auto) 11.0 H, Lymph # (Auto) 1.3, [place] # (Auto) 0.4, Eos # (Auto) 0.2, Baso # (Auto) 0.1, ESR 23 05/10/21 21:00: Sodium 137, Potassium 3.9, Chloride 103, Carbon Dioxide 29, Anion Gap 8.9, BUN 20 H, Creatinine 0.70, Estimated Creat Clear 45, Estimated GFR 79, Est GFR ( Amer) 96, Glucose 116 H, Calcium 9.0, Total Bilirubin 0.6, AST 30, ALT 21, Alkaline Phosphatase 152 H, C-Reactive Protein 4.0, Total Protein 7.5, Albumin 4.4, Globulin 3.1, Albumin/Globulin Ratio 1.4, Amylase 240 H, Lipase 1484 H, Procalcitonin 0.050 05/10/21 21:00: Troponin I < 0.01 05/10/21 21:27: SARS-CoV-2 (PCR) Not detected, Influenza A Untype (PCR) Not detected, Influenza Type B (PCR) Not detected 05/10/21 22:43: Urine Color Yellow, Urine Appearance Clear, Urine pH 5.5, Ur Specific [place] 1.010, Urine Protein Negative, Urine Glucose (UA) Negative, Urine Ketones Negative, Urine Blood Negative, Urine Nitrate Negative, Urine Bilirubin Negative, Urine Urobilinogen 0.2, Ur Leukocyte Esterase Negative, Urine WBC 3-5, Ur Squamous Epith Cells Occasional, Urine Bacteria Trace Result diagrams: 05/10/21 21:00 05/10/21 21:00 Orders (Tests/Meds): ED MEDICATIONS Generic Name Dose Route Start Last Admin Trade Name Freq PRN Reason Stop Dose Admin Sodium Chloride 1,000 mls @ 999 mls/hr 05/10/21 21:00 05/10/21 21:04 Sod Chlor 0.9% 1000ml Bag IV 05/10/21 22:00 999 mls/hr .Q1H1M DAGO Administration Sodium Chloride 8 ml 05/10/21 20:59 Sodium Chloride 0.9% 10ml Vial IV 06/09/21 20:58 NEEDED PRN dilute pepcid Discontinued Medications Generic Name Dose Route Start Last Admin
--- NOTE | 2021-05-10 21:39 | PC.NURSE ---
PATIENT BACK FROM XRAY
[2021-05-10 21:43] VITALS: BP 131/75; PULSE 82; O2SAT 95
[2021-05-10 22:00] VITALS: BP 148/77; PULSE 74; O2SAT 98
[2021-05-10 22:31] VITALS: BP 136/67; PULSE 71; O2SAT 96
[2021-05-10 22:49] LABS: Microscopic, Urine URINE MICROSCOPIC (MICROSCOPIC)
[2021-05-10 23:04] LABS: Appearance,Urine CLEAR (Clear); Bilirubin,Urine Negative (Negative); Blood, Urine Negative (Negative); Color,Urine YELLOW (Yellow); Glucose,Urine (UA) Negative (Negative); Ketones,Urine Negative (Negative); Leukocyte Esterase,Urine Negative (Negative); Nitrate,Urine Negative (Negative); PH,Urine 5.5 (5.0-8.5); Protein,Urine Negative (Negative); Urobilinogen,Urine 0.2 EU/dl (0.2)
[2021-05-10 23:09] LABS: Bacteria,Urine Trace /lpf; Squamous Epithelial Cell,Urine Occasional #/hpf (0-5)
[2021-05-10 23:52] LABS: Troponin I < 0.01 ng/ml (0.00-0.034)
[2021-05-11 00:10] VITALS: BP 136/67; PULSE 71; RESP 18; TEMP 36.8; O2SAT 98
== END 2021-05-11 00:12 | disposition home or self-care (01) ==
PROVIDERS: Emergency Provider Emergency Medicine; PCP Family Medicine
DX: K85.90 Acute pancreatitis without necrosis or infection, unspecified (principal); K80.20 Calculus of gallbladder without cholecystitis without obstruction; I48.0 Paroxysmal atrial fibrillation; I10 Essential (primary) hypertension; Z79.899 Other long term (current) drug therapy
CPT/HCPCS: 74177; 80053; 81001; 82150; 83690; 84145; 84484; 85025; 85651; 86140; 93005; 96365; 96375; 99284; C9803; J2405; Q9967; U0003; U0005

== ENCOUNTER → 2021-05-19 07:39 | Outpatient (CLI) | payer MEDICARE, SELFPAY ==
--- NOTE | 2021-05-19 07:43 | US_ITS ---
FINAL REPORT CLINICAL HISTORY: ABN CT OF ABD,VOMITING,CALCULUS OF GB FINDINGS: ULTRASOUND RIGHT UPPER QUADRANT Sonographic imaging of the right upper quadrant was obtained. The pancreas is partially obscured. The liver is unremarkable. There are multiple gallstones within the gallbladder. There is no gallbladder wall thickening. There is no biliary ductal dilatation. The common duct is normal at 2 mm. Limited images of the right kidney are unremarkable. IMPRESSION: Multiple gallstones within the gallbladder. Reviewed, Interpreted and Dictated by Maurizio Crocker MD Transcribed by Ivonne Gonzales Authenticated by Maurizio Crocker MD on 05/19/2021 10:29:[address] [facility]
== END ==
PROVIDERS: PCP Family Medicine; Visit Provider Family Medicine
DX: R11.10 Vomiting, unspecified (principal); R93.5 Abnormal findings on diagnostic imaging of other abdominal regions, including retroperitoneum; K80.20 Calculus of gallbladder without cholecystitis without obstruction
CPT/HCPCS: 76705

== ENCOUNTER → 2021-11-17 09:49 | Outpatient (CLI) | payer MEDICARE, SELFPAY ==
--- NOTE | 2021-11-17 09:53 | CA_ITS ---
APPROVED REPORT EXAM: Comprehensive 2D, Doppler, and color-flow Echocardiogram B[employer] Twirler: Purvi Metzger CRT Ht: 5 ft 3 in Wt: 153lbs BSA: 1.73 BP: 130/60 mmHg Indications: afib, HTN 2D Dimensions LVOT 1.80 cm (M/F) 1.5-2.5 LA Volume 34.90 mL LA Volume Index 20.20 mL/m2 (M/F) 16-34 M-Mode Dimensions RVDd 3.39 cm (0.9-2.6) LA Diam 4.91 cm (1.9-4.0) LVDd 4.75 cm (3.5-5.7) Ao Diam 3.09 cm (2.0-3.7) LVDs 3.32 cm (3.5-5.7) IVSd 0.78 cm (0.6-1.1) PWd 0.61 cm (0.6-1.1) EF (Teich) 57.30% FS 30.10% EDV (Teich) 104.90 mL ESV (Teich) 44.80 mL LV Diastology E Decel Time 303.00 (160-240 msec) E/A Ratio 0.84 MED E' 8.50 (< 7 cm/sec) MED A' 13.60 cm/s E'/MED E' Ratio 10.96 (>14) LAT E' 9.00 (<10 cm/sec) LAT A' 13.40 cm/s E/LAT E' Ratio 10.36 (>14) Aortic Valve LVOT Max 120.00 (70-110 cm/s) LVOT VTI 32.65 cm AoV Peak Yannick. 201.00 (50-130 cm/s) AO Peak GR. 16.10 mmHg AO Mean GR. 9.00 (<5 mmHg) AO VTI 48.51 (18-25 cm) KACY (VTI) 1.71 (2.5-4.5 cm2) Mitral Valve MV E Max Yannick. 93.00 (40-130 cm/s) MV A Velocity 110.00 (40-130 cm/s) E/A Ratio 0.84 MV Decel. Time 303.00 (160-240 ms) MV PHT 89.00 ms Pulmonary Valve PV Peak Velocity 157.00 (50-150 cm/s) Tricuspid Valve TR P. Velocity 281.00 cm/s RAP Estimate 10.00 mmHg RVSP 41.60 mmHg Left Ventricle Left atrium is moderately enlarged, left ventricle is normal size mild concentric left ventricular hypertrophy, estimated ejection fraction 55% with no regional wall motion abnormality, grade 1 diastolic dysfunction seen without tissue Doppler evidence of raise left atrial pressure. Right Ventricle Right atrium and right ventricle are mildly enlarged with normal contractility. Aortic Valve Aortic valve is minimally thickened and fibrosed there is no aortic stenosis or aortic insufficiency. Mitral Valve Mitral valve has mitral annular calcification, there is no mitral stenosis, there is moderate mitral regurgitation. Tricuspid Valve Tricuspid valve grossly normal, there is moderate tricuspid regurgitation, calculated right ventricular systolic pressure is 42 mmHg. Pulmonic Valve Pulmonic valve is poorly visualized. Great Vessels Aortic root is normal size. Inferior vena cava is poorly visualized. Pericardium No significant pericardial effusion noted. Conclusion 1. Biatrial enlargement, normal left ventricular size, mild concentric left ventricular hypertrophy, estimated ejection fraction 55% with no regional wall motion abnormality, grade 1 diastolic dysfunction seen without tissue Doppler evidence of raise left atrial pressure. 2. Thickened and calcified aortic valve without aortic stenosis aortic insufficiency. 3. Moderate mitral and tricuspid regurgitation, calculated right ventricular systolic pressure is 42 mmHg. 4. Mildly enlarged right ventricle with normal contractility. 5. No significant pericardial effusion. 6. Inferior vena cava is poorly visualized. Electronically signed by : Oli Renteria MD 11/18/2021 06:16:30
== END ==
PROVIDERS: PCP Nurse Practitioner Family; Visit Provider Nurse Practitioner Family
DX: I48.0 Paroxysmal atrial fibrillation (principal)
CPT/HCPCS: 93306

== ENCOUNTER 2023-08-28 13:04 | Outpatient (CLI) | payer MEDICARE, SELFPAY ==
[2023-08-28 14:05] LABS: Alanine Aminotransferase 19 U/L (12-78); Albumin Level 3.7 g/dl (3.5-5.0); Albumin/Globulin Ratio 1.3 (1.1-1.8); Alkaline Phosphatase 174 U/L (38-126); Anion Gap 12.6 mEq/L (5-15); Aspartate Amino Transferase 30 U/L (14-36); Bilirubin,Total 0.7 mg/dl (0.2-1.3); Blood Urea Nitrogen 23 mg/dl (7-17); Calcium 9.2 mg/dl (8.4-10.2); Carbon Dioxide 30 mmol/L (22.0-30.0); Chloride 97 mmol/L (98-107); Estimated Glomerular Filt Rate 47 ml/min (>60); GFR (African American) 57 ML/MIN (>60); Globulin 2.8 g/dL (1.3-3.2); Glucose 101 mg/dl (74-100); Potassium 4.6 mmoL/L (3.5-5.1); Sodium 135 mmol/L (136-145); Total Protein,Serum 6.5 g/dl (6.3-8.2)
== END 2023-08-28 23:59 | disposition home or self-care (01) ==
LOC: LAB.DROPOF 13:05
PROVIDERS: PCP Nurse Practitioner Family; Visit Provider Nurse Practitioner Family
DX: R82.998 Other abnormal findings in urine (principal); N18.9 Chronic kidney disease, unspecified
CPT/HCPCS: 80053; 87086

== ENCOUNTER 2023-09-13 08:31 | Outpatient (CLI) | payer MEDICARE, SELFPAY ==
--- NOTE | 2023-09-13 09:04 | XR_ITS ---
FINAL REPORT CLINICAL HISTORY: foot pain FINDINGS: AP, oblique and lateral views of the right foot were obtained. There is no prior exam for comparison. There is no acute fracture or dislocation. There is multi joint degenerative disease. Soft tissues are normal. IMPRESSION: Degenerative changes without acute osseous abnormality of the right foot. Reviewed, Interpreted and Dictated by Gladys Magaña MD Transcribed by Opal Nickerson Authenticated and . [facility]
--- NOTE | 2023-09-13 09:04 | XR_ITS ---
FINAL REPORT CLINICAL HISTORY: Foot Pain FINDINGS: AP, oblique and lateral views of the left foot were obtained. There is no prior exam for comparison. There is no acute fracture or dislocation. There is multi joint degenerative disease. Soft tissues are normal. IMPRESSION: Degenerative changes without acute osseous abnormality of the left foot. Reviewed, Interpreted and Dictated by Gladys Magaña MD Transcribed by Opal Nickerson Authenticated and [facility]
== END 2023-09-13 23:59 | disposition home or self-care (01) ==
LOC: RAD 08:35
PROVIDERS: PCP Nurse Practitioner Family; Visit Provider Podiatrist
DX: M79.671 Pain in right foot (principal); M79.672 Pain in left foot
CPT/HCPCS: 73630

== ENCOUNTER 2023-09-13 09:26 | Outpatient (RCR) | payer MEDICARE, SELFPAY ==
--- NOTE | 2023-09-13 10:31 | HMH.PTOPWND ---
Rehab Outpt Wound Evaluation Rehab OP Wound Evaluation Start: 09/13/23 10:16 Freq: Status: Active Protocol: Document 09/13/23 10:18 DANIAL (Rec: 09/13/23 10:31 PHOGALE [id number]) E-signed By Anibal Mi, PT Subjective/History History History This is the initial PT eval for Briana Sofia, 88 yowf who presents with c/o B LE edema increased x ~ 2-3 yrs with insidious onset. She reports no c/o pain, they just feel tight sometimes. She also has no recent injuries or hospitalizations preceding this increased edema. She has PMH of a-fib and is remarkably good health overall. She reports she is generally independent with all mobility and sometimes I use the furniture to get through the house, but I still work at [employer] 4 days a week. Subjective Subjective Pt presents with 1+ pitting edema to B ankles and L foot this date. No TTP or erythema noted. L Lower legs is mildly worse than the R with edema. It is very likely that these symptoms have been present for much longer than she realizes . New diagnosis of cancer in past 12 No months? 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 CVI Stemmer's sign Stemmer's Sign no Stage of Lymphedema Lymphedema stages Stage I (Pitting edema, reduces w/ elevation, no fibrosis) Skin Changes Dry Skin Yes Discoloration of Skin Yes Pain Scale Pain Scale (0-10) 0 Affected Extremities Areas Affected by Lymphedema/Edema Lumbar/Gluteal Region,Left Lower Extremity Lower Extremity Measurements Right MTP Measurement (cm) 22.5 Heel Measurement (cm) 32.4 10 cm Proximal to Lateral Malleoli 28.1 Measurement (cm) 20 cm Proximal to Lateral Malleoli 37.3 Measurement (cm) 30 cm Proximal to Lateral Malleoli 39.2 Measurement (cm) 40 cm Proximal to Lateral Malleoli 0 Measurement (cm) 50 cm Proximal to Lateral Malleoli 0 Measurement (cm) 60 cm Proximal to Lateral Malleoli 0 Measurement (cm) Lower Extremity Measurement Total (cm) 159.5 Left MTP Measurement (cm) 23.3 Heel Measurement (cm) 33.8 10 cm Proximal to Lateral Malleoli 29.8 Measurement (cm) 20 cm Proximal to Lateral Malleoli 39.7 Measurement (cm) 30 cm Proximal to Lateral Malleoli 39.5 Measurement (cm) 40 cm Proximal to Lateral Malleoli 0 Measurement (cm) 50 cm Proximal to Lateral Malleoli 0 Measurement (cm) 60 cm Proximal to Lateral Malleoli 0 Measurement (cm) Lower Extremity Measurement Total (cm) 166.1 Manual Lymphatic Drainage Treatment Area MLD Treatment Area Right Lower Extremity,Left Lower Extremity Wound Problems/Impairments Impairments Problems/Impairmments Increased Edema,Lymphedema Present,Impaired Self Care/ Self Management Prognosis Rehab Potential Good Comment Skilled therapy is indicated to reduce overall edema and assist pt in obtaining the appropriate level of compression garments to return her to PLOF. Clinical Impression Consistent with Diagnosis Yes Short Term Goals Number of Weeks 2 Decrease Edema Yes: no pitting edema B lower legs Patient to Understand Lymphedema Yes Treatment and Exercises Decrease Girth Measurments by (cm) Yes: B LE total by 5 cm ea Snf Goals Number of Weeks 4 Decrease Lymphedema Yes: No fibrotic edema B lower legs Patient to be Ind w/ HEP Yes Patient to be Ind w/ [place] Yes Compression Garments Patient to Adhere Lymphedema Precautions Yes Decrease Girth Measurments by (cm) Yes: B LE total by 10 cm ea Outpatient Therapy Plan of Care Treatment Plan May Include Therapeutic Exercise Including Home Yes Exercise Program Manual Therapy Techniques Yes Neuromuscular Re-education Yes Therapeutic Activities to Return to Yes Previous Functional/Work Level ADL/Self Care Education Yes Orthotics/Bracing/Splinting Yes Manual Lymphatic Drainage Yes Eval/Re-Eval Yes Frequency Times per week 1-2 Duration Number of Weeks 4 Addendums This patient is a candidate for social No or vocational rehab? Patient/Guardian verbally acknowledges Yes understanding of treatment program and consents to further treatment? Patient/Guardian verbally acknowledges Yes understanding of diagnosis, prognosis and goals for treatment? Eval Complexity PT Charges 51298 - High Complexity PHYSICIAN CERTIFICATION: I certify the specified therapy services for Briana Sofia are required, authorized, and reviewed every 30 days.
== END 2023-09-13 09:28 | disposition home or self-care (01) ==
LOC: PT 09:26
PROVIDERS: Visit Provider Nurse Practitioner Family
DX: I89.0 Lymphedema, not elsewhere classified (principal)
CPT/HCPCS: 97163

== ENCOUNTER 2023-09-14 07:56 | Outpatient (CLI) | payer MEDICARE, SELFPAY ==
--- NOTE | 2023-09-14 07:57 | MR_ITS ---
FINAL REPORT TECHNIQUE: Multiplanar and multisequence imaging the right knee was obtained without contrast. CLINICAL HISTORY: left knee pain, swelling. KNEE INSTABILITY. MEDIAL SIDED KNEE PAIN FINDINGS: Bones: There is advanced degenerative joint disease with deformity of the femoral condyles and tibial plateau. Multiple subchondral cysts are identified. There is marrow edema of the distal femur and proximal tibia which is nonspecific. Essentially, there is no remaining cartilage along the weightbearing portion of the medial and lateral compartments. Menisci: The medial meniscus is macerated. There is no normal anterior horn of the lateral meniscus. The posterior horn of the lateral meniscus is unremarkable. Ligaments: There ACL is torn. This is likely chronic. The PCL is abnormal. The medial and lateral collateral ligaments are grossly normal. Tendons/Muscles: The quadriceps and patellar tendons are within normal limits. The biceps femoris tendon and iliotibial tract are intact. The popliteus tendon is normal. Other: There is a large joint effusion. Saw tissue edema is identified. Remaining soft tissues are normal. IMPRESSION: Advanced degenerative joint disease. Bone marrow edema, likely related to advanced degenerative disease, infectious or inflammatory arthropathy is not excluded. Consider aspiration of joint fluid. Extensive abnormality of the menisci. ACL tear, likely chronic. Reviewed, Interpreted and Dictated by Gladys Magaña MD Transcribed by Lisa Christiansen Authenticated and [facility]
== END 2023-09-14 23:59 | disposition home or self-care (01) ==
LOC: RAD 07:57
PROVIDERS: PCP Nurse Practitioner Family; Visit Provider Nurse Practitioner Family
DX: M25.562 Pain in left knee (principal)
CPT/HCPCS: 73721

== ENCOUNTER 2023-09-22 13:39 | Outpatient (CLI) | payer MEDICARE, SELFPAY ==
--- NOTE | 2023-09-22 13:43 | US_ITS ---
FINAL REPORT CLINICAL HISTORY: CAD, bilateral rest pain, bilateral claudication, edema FINDINGS: LOWER EXTREMITY SEGMENTAL PRESSURE MEASUREMENTS Pressure indices are as follows: RIGHT LOWER EXTREMITY: Lower thigh: 1.0 Calf: 1.0 Ankle, posterior tibial artery: 1.0 Ankle, dorsalis pedis: 1.0 Toe: 0.72 LEFT LOWER EXTREMITY: Lower thigh: 0.93 Calf: 0.98 Ankle, posterior tibial artery: 1.0 Ankle, dorsalis pedis: 0.92 Toe: 0.95 IMPRESSION: Normal segmental pressures. Reviewed, Interpreted and Dictated by Cecy Perez MD Transcribed by Lisa Christiansen Authenticated and [facility]
== END 2023-09-22 23:59 | disposition home or self-care (01) ==
LOC: RT 13:39
PROVIDERS: PCP Nurse Practitioner Family; Visit Provider Nurse Practitioner
DX: R09.89 Other specified symptoms and signs involving the circulatory and respiratory systems (principal)
CPT/HCPCS: 93923

== ENCOUNTER 2023-09-28 07:58 | Outpatient (CLI) | payer MEDICARE, SELFPAY ==
--- NOTE | 2023-09-28 08:02 | XR_ITS ---
FINAL REPORT CLINICAL HISTORY: Lt Knee Pain COMPARISON: 03/19/2021 FINDINGS: Left knee Three views were obtained. There is no acute fracture or dislocation. There is marked medial and lateral compartment joint space narrowing. There is significant lateral subluxation of the proximal tibia relative to the distal femur. There is prominent degenerative cyst formation in the proximal tibia measuring up to 2.0 cm. There is fragmentation at the medial compartment joint space. No soft tissue abnormality is identified. IMPRESSION: Marked advanced changes of osteoarthritis with new lateral subluxation of the proximal tibia relative to the distal femur. Reviewed, Interpreted and Dictated by Maurizio Crocker MD Transcribed by Lisa Christiansen Authenticated and [facility]
== END 2023-09-28 23:59 | disposition home or self-care (01) ==
LOC: RAD 07:59
PROVIDERS: PCP Nurse Practitioner Family; Visit Provider Physician Assistant
DX: M25.562 Pain in left knee (principal)
CPT/HCPCS: 73562

== ENCOUNTER 2024-01-10 10:01 | Outpatient (CLI) | payer MEDICARE, SELFPAY ==
[2024-01-10 14:12] LABS: Basophils % 0.2 % (0.1-2.0); Eosinophils # 0.1 K/mm3 (0.0-0.4); Eosinophils % 0.9 % (0.1-12.0); Hematocrit 44.1 % (37.0-47.0); Hemoglobin 14.9 g/dL (12.2-16.2); Lymphocytes % 19.6 % (10-50); Mean Corpuscular HGB Conc 33.9 g/dL (31.8-35.4); Mean Corpuscular Hemoglobin 34.3 pg (27.0-31.2); Mean Corpuscular Volume 101.4 fl (81-99); Monocytes # 0.5 K/mm3 (0.1-1.0); Monocytes % 9.1 % (1.7-9.3); Neutrophils # 3.7 K/mm3 (1.8-7.8); Neutrophils % 70.2 % (37.0-80.0); Platelet Count 263 K/mm3 (142-424); Red Blood Count 4.34 M/mm3 (4.20-5.40); Red Cell Distribution Width 13.6 % (11.5-17.5); White Blood Count 5.2 K/mm3 (4.8-10.8)
[2024-01-10 14:32] LABS: Alanine Aminotransferase 16 U/L (12-78); Albumin Level 3.6 g/dl (3.5-5.0); Albumin/Globulin Ratio 1.5 (1.1-1.8); Alkaline Phosphatase 171 U/L (38-126); Anion Gap 10.5 mEq/L (5-15); Aspartate Amino Transferase 30 U/L (14-36); Bilirubin,Total 0.7 mg/dl (0.2-1.3); Blood Urea Nitrogen 23 mg/dl (7-17); Carbon Dioxide 30 mmol/L (22.0-30.0); Chloride 102 mmol/L (98-107); Estimated Glomerular Filt Rate 59 ml/min (>60); GFR (African American) 71 ML/MIN (>60); Globulin 2.4 g/dL (1.3-3.2); Glucose 76 mg/dl (74-100); Potassium 5.5 mmoL/L (3.5-5.1); Sodium 137 mmol/L (136-145)
== END 2024-01-10 23:59 | disposition home or self-care (01) ==
LOC: LAB.DROPOF 01-11 12:51
PROVIDERS: PCP Nurse Practitioner Family; Visit Provider Nurse Practitioner Family
DX: N18.9 Chronic kidney disease, unspecified (principal); R42 Dizziness and giddiness; I48.91 Unspecified atrial fibrillation
CPT/HCPCS: 80053; 85025

== ENCOUNTER 2024-01-21 10:32 | Emergency (ER) | payer MEDICARE, SELFPAY ==
[2024-01-21 10:33] VITALS: RESP 16; O2SAT 95; BMI 21.6
[2024-01-21 10:34] VITALS: BMI 24.3
--- NOTE | 2024-01-21 10:34 | CT_ITS ---
PROCEDURE INFORMATION: Exam: CTA Head With Contrast, Arteriography Exam date and time: 01/21/2024 10:43 AM Age: 88 years old Clinical indication: Stroke-like symptoms; Right facial droop; Additional info: Possible stroke TECHNIQUE: Imaging protocol: Computed tomographic angiography of the head with contrast. Exam focused on the arteries. 3D rendering (Not supervised by radiologist): MIP and/or 3D reconstructed images were created by the technologist. Radiation optimization: All CT scans at this facility use at least one of these dose optimization techniques: automated exposure control; mA and/or kV adjustment per patient size (includes targeted exams where dose is matched to clinical indication); or iterative reconstruction. Contrast material: ISO 370; Contrast volume: 160 ml; Contrast route: INTRAVENOUS (IV); COMPARISON: CT HEAD/BRAIN WO CON 01/21/2024 10:37 AM FINDINGS: ANTERIOR CIRCULATION: Right internal carotid artery: There is atherosclerotic disease involving the right cavernous ICA without narrowing. Right middle cerebral artery: No occlusion or significant stenosis. No aneurysm. Right anterior cerebral artery: No occlusion or significant stenosis. No aneurysm. Left internal carotid artery: There is no flow in the left petrous or cavernous ICA. There is atherosclerotic disease involving the left cavernous ICA without narrowing. Left middle cerebral artery: There is no flow in the left M1 segment and proximal M2 segments. There is some flow in the vessels in the left sylvian fissure, and poor collateralization may be present. Left anterior cerebral artery: There is no flow in the proximal right A1 segment. The mid and distal right A1 segment as well as the right A2 distribution appear normal. POSTERIOR CIRCULATION: Right vertebral artery: No occlusion or significant stenosis. No aneurysm. Left vertebral artery: No occlusion or significant stenosis. No aneurysm. Basilar artery: No occlusion or significant stenosis. No aneurysm. Right posterior cerebral artery: No occlusion or significant stenosis. No aneurysm. Left posterior cerebral artery: No occlusion or significant stenosis. No aneurysm. Brain: Loss of the gimenez-white junction in the left MCA distribution including the left temporal lobe, insula and basal ganglia was better assessed on the noncontrast CT.. Cerebral ventricles: There is partial effacement of the left lateral ventricle. Bones/joints: No acute fracture. Soft tissues: Unremarkable. IMPRESSION: Left ICA occlusion involving the left MCA distribution including the left M1 and M2 segments with possible poor collateralization.
--- NOTE | 2024-01-21 10:34 | CT_ITS ---
PROCEDURE INFORMATION: Exam: CT Head Without Contrast Exam date and time: 01/21/2024 10:37 AM Age: 88 years old Clinical indication: Stroke-like symptoms; Right facial droop; Additional info: Possible stroke TECHNIQUE: Imaging protocol: Computed tomography of the head without contrast. Radiation optimization: All CT scans at this facility use at least one of these dose optimization techniques: automated exposure control; mA and/or kV adjustment per patient size (includes targeted exams where dose is matched to clinical indication); or iterative reconstruction. Other technique: STROKE PROTOCOL was implemented. COMPARISON: CT HEAD/BRAIN WO CON 11/15/2020 6:52 PM FINDINGS: Brain: There is low attenuation within the anterior left temporal lobe, left insula and lateral left basal ganglia with loss of the gimenez-white junction consistent acute nonhemorrhagic infarction. Cerebral ventricles: There is slight asymmetry of the lateral ventricles with the left smaller than right which could be secondary to some mass effect. Paranasal sinuses: There is a 9 mm retention cyst/polyp in the anterior right maxillary sinus. No fluid levels. Mastoid air cells: Visualized mastoid air cells are well aerated. Orbits: There are postoperative changes from prior cataract surgery. Bones: No acute fracture. Soft tissues: Unremarkable. Vasculature: There is a hyperdense left ICA and left M1 segment (series 11, image 27). IMPRESSION: 1. Hyperdense left carotid ICA and left M1 segment consistent with thrombus. 2. 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 ASSESSMENT: ASPECTS ([facility] Stroke Program Early CT Score) is 10.
--- NOTE | 2024-01-21 10:34 | XR_ITS ---
PROCEDURE INFORMATION: Exam: XR Chest Exam date and time: 01/21/2024 10:49 AM Age: 88 years old Clinical indication: Other: Facial droop; Additional info: Stroke TECHNIQUE: Imaging protocol: Radiologic exam of the chest. Views: 1 view. COMPARISON: CT CHEST W CON 11/15/2020 6:58 PM FINDINGS: Lungs: No consolidation. Pleural spaces: The left costophrenic angle is excluded from the exam. Heart/Mediastinum: The heart is mildly enlarged. Bones/joints: There are degenerative changes of the spine and right shoulder. There is elevation of the right lateral clavicle consistent with a chronic AC joint injury. IMPRESSION: 1. No evidence of active pulmonary disease, although the left costophrenic angles excluded from this exam. 2. A followup PA and lateral radiograph is recommended when the patient is clinically able.
--- NOTE | 2024-01-21 10:34 | ECG_ITS ---
APPROVED REPORT Exam: Resting ECG HR:62 bpm ECG Measurements Heart Rate 62 AXES DE 162 P 89 QRSd 87 QRS -58 QT 432 T 86 QTc 438 Conclusion SINUS RHYTHM WITH SINUS ARRHYTHMIA POSSIBLE RIGHT VENTRICULAR CONDUCTION DELAY [RSR (QR) IN V1/V2] LEFT ANTERIOR FASCICULAR BLOCK [QRS AXIS <= -45, QR IN I, RS IN II] MODERATE ST DEPRESSION [0.05+ mV ST DEPRESSION] ABNORMAL ECG UNCONFIRMED REPORT Electronically signed by : Claudio Rivers, 01/21/2024 14:57:45
--- NOTE | 2024-01-21 10:34 | CT_ITS ---
PROCEDURE INFORMATION: Exam: CTA Neck With Contrast Exam date and time: 01/21/2024 10:43 AM Age: 88 years old Clinical indication: Stroke-like symptoms; Right facial droop; Additional info: Possible stroke TECHNIQUE: Imaging protocol: Computed tomographic angiography of the neck with contrast. Exam focused on the cervical segments of the vasculature. 3D rendering (Not supervised by radiologist): MIP and/or 3D reconstructed images were created by the technologist. Radiation optimization: All CT scans at this facility use at least one of these dose optimization techniques: automated exposure control; mA and/or kV adjustment per patient size (includes targeted exams where dose is matched to clinical indication); or iterative reconstruction. Contrast material: ISO 370; Contrast volume: 160 ml; Contrast route: INTRAVENOUS (IV); COMPARISON: CT ANGIO NECK 03/14/2020 8:10 AM FINDINGS: Right common carotid artery: No stenosis. No dissection or occlusion. Right internal carotid artery: There is atherosclerotic disease at the origin of the right ICA with mild narrowing. Right external carotid artery: No occlusion or stenosis of the origin. Left common carotid artery: No stenosis. No dissection or occlusion. Left internal carotid artery: There is occlusion of the proximal left ICA just distal to its origin through the entire cervical segment. Left external carotid artery: No occlusion or stenosis of the origin. Right vertebral artery: No stenosis. No dissection or occlusion. Left vertebral artery: No stenosis. No dissection or occlusion. Thyroid: There are multiple small thyroid nodules. Soft tissues: Normal. No significant soft tissue swelling. Bones/joints: There are degenerative changes throughout the cervical spine. There are degenerative changes of the right glenohumeral joint. IMPRESSION: Left ICA occlusion. COMMENTS: Consistent with the [employer]'s Incidental Findings Committee white paper (J Am Jean-Paul Radiol 2015): In patients aged 35 years and older with an incidental thyroid nodule equal to or greater than 1.[address], MRI or extrathyroidal US, further evaluation with dedicated thyroid US is recommended for patients with normal life expectancy and without comorbidities. For smaller nodules without suspicious features, no further evaluation or follow up is recommended. REFERENCES: NASCET CRITERIA. The degree of stenosis in the cervical segment of the internal carotid artery is based on NASCET criteria. Normal is no stenosis. Mild is less than 50% stenosis. Moderate is 50-69% stenosis. Severe is 70% to 99% stenosis. Total occlusion is no detectable patent lumen.
--- NOTE | 2024-01-21 10:41 | PC.NURSE ---
[facility] accepted for standby- 12min ETA
--- NOTE | 2024-01-21 10:45 | PC.NURSE ---
called [facility] for transfer for stroke, speaking with stroke navigator at [facility]
[2024-01-21 10:47] LABS: Basophils % 0.6 % (0.1-2.0); Eosinophils # 0.1 K/mm3 (0.0-0.4); Eosinophils % 0.9 % (0.1-12.0); Hemoglobin 14.6 g/dL (12.2-16.2); Lymphocytes # 0.9 K/mm3 (0.7-4.5); Lymphocytes % 13.9 % (10-50); Mean Corpuscular HGB Conc 33.9 g/dL (31.8-35.4); Mean Corpuscular Hemoglobin 34.1 pg (27.0-31.2); Mean Corpuscular Volume 100.6 fl (81-99); Mean Platelet Volume 7.4 fl (7.4-10.4); Monocytes # 0.4 K/mm3 (0.1-1.0); Monocytes % 6.1 % (1.7-9.3); Neutrophils # 4.9 K/mm3 (1.8-7.8); Neutrophils % 78.5 % (37.0-80.0); Platelet Count 232 K/mm3 (142-424); Red Blood Count 4.27 M/mm3 (4.20-5.40); Red Cell Distribution Width 13.7 % (11.5-17.5); White Blood Count 6.3 K/mm3 (4.8-10.8)
[2024-01-21] MEDS: IOPAMIDOL-370 (76%);100ML BOTTLE 80 ML IV ×2 (10:53→10:57)
[2024-01-21] MEDS: SODIUM CHLORIDE 0.9% 10ML SYR (RAD ONLY) 10 ML IV (10:53)
[2024-01-21] MEDS: 0.9 % SODIUM CHLORIDE 50 ML VIAL IV ×2 (10:53→10:57)
--- NOTE | 2024-01-21 10:53 | PC.NURSE ---
ky 2- 12 min ETA
[2024-01-21 10:54] LABS: Activated Partial Thrombo Time 25.9 seconds (22.8-30.6); INR 0.93 (0.9-1.1); Prothrombin Time 10.5 seconds (10.1-12.5)
[2024-01-21 10:56] LABS: Alanine Aminotransferase 18 U/L (12-78); Albumin Level 3.7 g/dl (3.5-5.0); Albumin/Globulin Ratio 1.4 (1.1-1.8); Alkaline Phosphatase 147 U/L (38-126); Aspartate Amino Transferase 28 U/L (14-36); Bilirubin,Total 0.8 mg/dl (0.2-1.3); Blood Urea Nitrogen 27 mg/dl (7-17); Calcium 8.9 mg/dl (8.4-10.2); Carbon Dioxide 29 mmol/L (22.0-30.0); Chol/HDL Ratio 2.3 (1-3.5); Cholesterol 205 mg/dl (140-200); Creatinine Clearance Estimated 37 mL/min (50-200); Estimated Glomerular Filt Rate 59 ml/min (>60); GFR (African American) 71 ML/MIN (>60); Globulin 2.7 g/dL (1.3-3.2); Glucose 119 mg/dl (74-100); HDL Cholesterol 90 mg/dl (40-60); Total Protein,Serum 6.4 g/dl (6.3-8.2); Triglycerides 88 mg/dl (30-150); VLDL Cholesterol 18 mg/dL (0-40)
[2024-01-21 10:58] VITALS: BP 165/90; PULSE 62; O2SAT 100
[2024-01-21 11:01] VITALS: BP 170/85; PULSE 63; O2SAT 100
--- NOTE | 2024-01-21 11:05 | ED_ITS ---
Discharge Plan Disposition Patient Disposition: Xfer Other Prescriptions Prescriptions: No Action diclofenac sodium 1 % gel 4 g topical QID PRN (Reason: pain ) 30 Days Qty: 100 3RF Rx Instructions: apply to single, ankle, foot; for foot includes sole/toes/top of foot PreserVision AREDS-2 250-90-40-1 mg capsule 1 tab PO BID furosemide 20 mg tablet 20 mg PO DAILY PRN (Reason: edema) Qty: 30 4RF tramadol 25 mg tablet 25 mg PO Q6H PRN (Reason: pain) Qty: 30 0RF sertraline [Zoloft] 25 mg tablet 12.5 mg PO DAILY Qty: 30 0RF meloxicam 7.5 mg tablet See Rx Instructions .ROUTE .COMPLEX Qty: 90 1RF Dose Instruction: TAKE 1 TABLET BY MOUTH ONCE DAILY Rx Instructions: TAKE 1 TABLET BY MOUTH ONCE DAILY atenolol 25 MG tablet 25 mg PO DAILY Referrals Follow up/Referrals: Malissa Velazquez APRN [Primary Care Provider] - See instructions Clinical Impressions Clinical Impression: Acute CVA (cerebrovascular accident), Carotid artery occlusion Stand Alone Forms Stand Alone Forms: Transfer Record - ED Print Language Print Language: Estonian Discharge ED Provider: Moriah Rivers General Adult HPI General Chief complaint: Weakness Stated complaint: stroke alert Time Seen by Provider: 01/21/24 10:38 Mode of Arrival: EMS Source of Information: Relative and EMS Limitations: both ams and physical limitation Description of Symptoms (Recalled from ER Triage Doc. by RN): r sided weakness. was found down @ [employer] after walking in. hx of afib. no thinner History of Present Illness HPI narrative: Patient is an 88-year-old female with a documented history of atrial fibrillation but does not on any anticoagulants from historical or documentation standpoint who presents today with profound and sudden change in mental status and unilateral weakness. 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 Glucose was normal and route she was protecting her airway was not intubated. Blood pressure was normal. She was stroke alerted in the field and went straight to the CT scanner no further history able to be obtained for the patient given her clinical status. Her son is at the bedside who states she did not have any other significant past medical history other than A-fib. Related Data Home Medications ?Medication ?Instructions ?Recorded ?Confirmed atenolol 25 mg tablet 25 mg PO DAILY High blood pressure 03/14/20 01/10/24 vit C 250 mg-vit E 90 mg-zinc 40 1 tab PO BID 08/22/23 01/10/24 mg-copper 1 [id number] capsule (PreserVision AREDS-2) Previous Rx's ?Medication ?Instructions ?Recorded furosemide 20 mg tablet 20 mg PO DAILY PRN edema #30 tabs 08/22/23 diclofenac sodium 1 % topical gel 4 g topical QID PRN pain 30 days 09/19/23 #100 grams meloxicam 7.5 mg tablet See Rx Instructions .Route 12/01/23 .COMPLEX #90 tabs sertraline 25 mg tablet (Zoloft) 12.5 mg (1/2 x 25 mg) PO DAILY #30 01/10/24 tabs tramadol 25 mg tablet 25 mg PO Q6H PRN pain #30 tabs 01/10/24 Allergies Allergy/AdvReac Type Severity Reaction Status Date / Time codeine Allergy Verified 01/10/24 09:06 [facility] Disclaimer: The information contained in this section may have been updated after the patient was seen, as this information can be updated by other users. Medical History Afib Surgical History History of tonsillectomy Social History Smoking Status: Never smoker alcohol intake: never substance use type: denies use current occupational status: employed Other Medical History Have you received the Flu Vaccine for this season: Yes Have you received the Pneumonia Vaccine: No ROS Obtained: Yes All systems reviewed & no additional complaints except as documented Physical Exam General General appearance: lethargic (GCS of 12 and protecting her airway) Respiratory Respiratory exam: Present normal lung sounds bilaterally Cardiovascular Cardiovascular exam: Present regular rate and normal rhythm Abdominal Exam Abdominal exam: Present soft and distention Neurological Exam Neurological exam: Present other (GCS of 12 she is unable to move her right upper extremity against gravity and has no movement in that extremity at all she is moving her left upper extremity she has some movement of her right lower extremity but it obviously we got a proportion to the left NIH stroke scale on my evaluation is 16) Expanded Neurological Exam Comment: Patient additionally is profoundly aphasic near mute she is trying to communicate but unable. Medical Decision Making Medical Records Screening: Per USPSTF and CDC recommendations, given the prevalence of disease in our region, it is our hospital?s policy to screen for HIV and viral Hepatitis for all patients aged 18 and over and those with ongoing risk factors. Kike Inquiry Pt receiving controlled substance: No Vital Signs: 01/21/24 10:33 Respiratory Rate 16 02 Sat by Pulse Oximetry 95 Oxygen Delivery Method Nasal Cannula Oxygen Flow Rate (LPM) 2 Lab Data Lab results reviewed: Yes I reviewed the patient's lab results. Lab Results 01/21/24 10:35: WBC 6.3, RBC 4.27, Hgb 14.6, Hct 43.0, MCV 100.6 H, MCH 34.1 H, MCHC 33.9, RDW 13.7, Plt Count 232, MPV 7.4, Neut % (Auto) 78.5, Lymph % (Auto) 13.9, [place] % (Auto) 6.1, Eos % (Auto) 0.9, Baso % (Auto) 0.6, Neut # (Auto) 4.9, Lymph # (Auto) 0.9, [place] # (Auto) 0.4, Eos # (Auto) 0.1, Baso # (Auto) 0.0, PT 10.5, INR 0.93, APTT 25.9, Carbon Dioxide 29, BUN 27 H, Creatinine 0.90, Estimated Creat Clear 37, Estimated GFR 59, Est GFR ( Amer) 71, Glucose 119 H, Calcium 8.9, Total Bilirubin 0.8, AST 28, ALT 18, Alkaline Phosphatase 147 H, Total Protein 6.4, Albumin 3.7, Globulin 2.7, Albumin/Globulin Ratio 1.4, Triglycerides 88, Cholesterol 205 H, VLDL Cholesterol 18, HDL Cholesterol 90 H, Cholesterol/HDL Ratio 2.3 01/21/24 10:35 01/21/24 10:35 Orders (Tests/Meds): ED MEDICATIONS Generic Name Dose Route Start Last Admin Trade Name Freq PRN Reason Stop Dose Admin Lactated Ringer's 1,000 mls @ 999 mls/hr 01/21/24 10:34 Lactated Ringer's 1000 Ml Bag IV 01/21/24 11:34 .Q1H1M ONE Sodium Chloride 10 ml 01/21/24 10:34 Sodium Chloride 0.9% 10ml Flush Syringe IV 02/20/24 10:33 NEEDED PRN Maintain IV Site Sodium Chloride 10 ml 01/21/24 10:44 01/21/24 10:53 Sodium Chloride 0.9% 10ml Syr (Rad Only) IV 02/20/24 10:43 10 ml NEEDED PRN Administration Maintain IV Site Discontinued Medications Generic Name Dose Route Start Last Admin Trade Name Freq PRN Reason Stop Dose Admin Iopamidol 80 ml 01/21/24 10:44 01/21/24 10:53 Iopamidol-370 (76%);100ml Bottle IV 01/21/24 10:45 80 ml ONCE ONE Administration Iopamidol 80 ml 01/21/24 10:53 01/21/24 10:57 Iopamidol-370 (76%);100ml Bottle IV 01/21/24 10:54 80 ml ONCE ONE Administration Sodium Chloride 50 ml 01/21/24 10:44 01/21/24 10:53 0.9 % Sodium Chloride 50 Ml Vial IV 01/21/24 10:45 50 ml ONCE ONE Administration Sodium Chloride 50 ml 01/21/24 10:53 01/21/24 10:57 0.9 % Sodium Chloride 50 Ml Vial IV 01/21/24 10:54 50 ml ONCE ONE Administration Tenecteplase 16 mg 01/21/24 11:00 Tenecteplase 50mg Vial IV 01/21/24 11:01 CONSULT PHARMACY ONE ORDERS Category Date Time Status CT angio head Stat Cat Scan 01/21/24 10:[address] angio neck Stat Cat Scan 01/21/24 10:[address] head/brain wo con Stat Cat Scan 01/21/24 10:34 Taken XR chest portable Stat Exams 01/21/24 10:34 Taken Activated Partial Thrombo Time Stat Lab 01/21/24 10:35 Completed Complete Blood Count Auto Diff Stat Lab 01/21/24 10:35 Completed Comprehensive Metabolic Panel Stat Lab 01/21/24 10:35 Results Drug Screen,Urine Stat Lab 01/21/24 10:34 Ordered Ethyl Alcohol Stat Lab 01/21/24 10:35 Received HIV (1&2) Antibody Rapid Stat Lab 01/21/24 10:35 Received Hep C Ab with Reflex to RNA Stat Lab 01/21/24 10:35 Received Lipid Panel Stat Lab 01/21/24 10:35 Results Prothrombin Time INR Stat Lab 01/21/24 10:35 Completed Troponin I Q3H Lab 01/21/24 13:45 Ordered Troponin I Q3H Lab 01/21/24 16:45 Ordered Troponin I Stat Lab 01/21/24 10:35 Results Urinalysis and Microscopic Stat Lab 01/21/24 10:34 Ordered ECG Request Stat Y 01/21/24 10:34 Ordered Medical Decision Narrative: 88-year-old female present today with what appears to be a profound debilitating stroke. She was stroke alerted in the field abnormal glucose went straight to the CT scanner I evaluate her airway was protected I did not intubate her. I had a discussion with her son asking what stroke center he would like to be sent to he [facility] at which point we began to communicate our data with that team. While the patient was in the CT scanner her noncontrasted CT scan returned and no definitive evidence of hemorrhaging was noted. We did extensive chart review called her pharmacy and also spoke to her son there is no evidence that she is on any anticoagulation. I had a risk-benefit discussion and the checklist for thrombolytics with her son who is at the bedside and in conjunction with the stroke team at [facility] we decided to proceed with thrombolytics. TNKase has been ordered and administered. Serial neurologic assessments she is still protecting her airway and has not changed much. Her CT angiography returned and I personally interpreted this also reviewed with our radiologist and the stroke team she has extensive ICA occlusion which is likely acute. She will go straight to the Flight Attendant/Inflight Supervisor was excepted by their ICU attending she was placed in a helicopter and transferred in a critical condition. Head of bed remains flat. She remains mildly hypertensive but no intervention needed for that perspective regarding thrombolytics. Most recent systolic blood pressure in the 170s. Critical Care Critical Care Time Critical Care Time: Yes Attestation: On 01/21/24, the high probability of a clinically significant, sudden or life threatening deterioration of the following system(s) required my full and direct attention, intervention and personal management. The time I documented below is in addition to time spent performing reported procedures but includes the following listed in this critical care notation. Total Time Total Critical Care Time: 65
[2024-01-21] MEDS: LACTATED RINGERS 1000ML 1,000 ML 999 ML IV (11:08)
[2024-01-21 11:09] VITALS: BP 172/95; PULSE 64; O2SAT 100
[2024-01-21 11:14] LABS: Potassium 4.1 mmoL/L (3.5-5.1)
[2024-01-21] MEDS: TENECTEPLASE 50MG VIAL 16 MG IV (11:16)
--- NOTE | 2024-01-21 11:23 | PC.NURSE ---
[place] [facility] calleds stating they are 10 minutes out before landing. pt family updated
[2024-01-21 11:28] LABS: Direct LDL Cholesterol 91.41 mg/dL (100-129)
[2024-01-21 11:29] LABS: Troponin I < 0.01 ng/ml (0.00-0.034)
[2024-01-21 11:31] VITALS: BP 174/96; PULSE 69; O2SAT 94
[2024-01-21 11:36] LABS: Chloride 102 mmol/L (98-107)
[2024-01-21 11:37] LABS: Anion Gap 9.1 mEq/L (5-15); Sodium 136 mmol/L (136-145)
[2024-01-21 11:47] VITALS: BP 170/85; PULSE 61; RESP 16; TEMP 36.7
[2024-01-21 11:49] LABS: Ethyl Alcohol < 10 mg/dl (0-10)
[2024-01-21 12:17] LABS: HIV (1&2) Antibody Rapid NONREACTIVE (NONREACTIVE)
[2024-01-23 06:52] LABS: HCV Ab Non Reactive (Non Reactive)
== END 2024-01-21 11:48 | disposition other institution (70) ==
PROVIDERS: Emergency Provider Student in an Organized Health Care Education/Training Program; PCP Nurse Practitioner Family
DX: I65.29 Occlusion and stenosis of unspecified carotid artery (principal); I63.9 Cerebral infarction, unspecified; R41.82 Altered mental status, unspecified; R53.1 Weakness
CPT/HCPCS: 70450; 70496; 70498; 71045; 80053; 80061; 80320; 84484; 85025; 85610; 85730; 86803; 87389; 93005; 96360; 96361; 96374; 99291; G0480; J3101; J7120; Q9967

== ENCOUNTER 2024-02-14 12:26 | Outpatient (CLI) | payer MEDICARE, SELFPAY ==
--- NOTE | 2024-02-14 12:29 | XR_ITS ---
FINAL REPORT CLINICAL HISTORY: right knee pain COMPARISON: 03/19/2021 FINDINGS: 3 views of the right knee were obtained. There is no acute fracture. There is severe tricompartmental degenerative change. Lateral subluxation is considered to be degenerative. There is a small joint effusion. There is no soft tissue abnormality. IMPRESSION: Degenerative changes and small joint effusion. No acute bony abnormality. Reviewed, Interpreted and Dictated by Cecy Perez MD Transcribed by Opal Nickerson Authenticated and [facility]
== END 2024-02-14 23:59 | disposition home or self-care (01) ==
LOC: RAD 12:27
PROVIDERS: PCP Internal Medicine; Visit Provider Physician Assistant
DX: M25.561 Pain in right knee (principal)
CPT/HCPCS: 73562

== ENCOUNTER 2024-03-26 09:25 | Outpatient (CLI) | payer MEDICARE, SELFPAY ==
[2024-03-26 16:18] LABS: Basophils % 0.1 % (0.1-2.0); Eosinophils # 0.4 K/mm3 (0.0-0.4); Eosinophils % 4.8 % (0.1-12.0); Hematocrit 40.8 % (37.0-47.0); Lymphocytes # 1.6 K/mm3 (0.7-4.5); Mean Corpuscular HGB Conc 34.3 g/dL (31.8-35.4); Mean Corpuscular Hemoglobin 31.9 pg (27.0-31.2); Mean Corpuscular Volume 92.9 fl (81-99); Mean Platelet Volume 9.3 fl (7.4-10.4); Monocytes # 0.6 K/mm3 (0.1-1.0); Monocytes % 7.9 % (1.7-9.3); Neutrophils # 5.2 K/mm3 (1.8-7.8); Neutrophils % 66.8 % (37.0-80.0); Platelet Count 324 K/mm3 (142-424); Red Blood Count 4.39 M/mm3 (4.20-5.40); Red Cell Distribution Width 12.7 % (11.5-17.5); White Blood Count 7.7 K/mm3 (4.8-10.8)
[2024-03-26 16:53] LABS: Alanine Aminotransferase 22 U/L (12-78); Albumin Level 3.5 g/dl (3.5-5.0); Albumin/Globulin Ratio 1.5 (1.1-1.8); Alkaline Phosphatase 183 U/L (38-126); Anion Gap 10.6 mEq/L (5-15); Aspartate Amino Transferase 31 U/L (14-36); Bilirubin,Total 0.3 mg/dl (0.2-1.3); Blood Urea Nitrogen 23 mg/dl (7-17); Calcium 9.1 mg/dl (8.4-10.2); Carbon Dioxide 36 mmol/L (22.0-30.0); Chloride 90 mmol/L (98-107); Chol/HDL Ratio 2.1 (1-3.5); Cholesterol 154 mg/dl (140-200); Estimated Glomerular Filt Rate 52 ml/min (>60); GFR (African American) 63 ML/MIN (>60); Globulin 2.4 g/dL (1.3-3.2); Glucose 107 mg/dl (74-100); HDL Cholesterol 74 mg/dl (40-60); Potassium 3.6 mmoL/L (3.5-5.1); Sodium 133 mmol/L (136-145); Total Protein,Serum 5.9 g/dl (6.3-8.2); Triglycerides 90 mg/dl (30-150); VLDL Cholesterol 18 mg/dL (0-40)
[2024-03-26 17:04] LABS: Direct LDL Cholesterol 68.46 mg/dL (100-129)
== END 2024-03-26 23:59 | disposition home or self-care (01) ==
LOC: LAB.DROPOF 03-27 09:25
PROVIDERS: PCP Internal Medicine; Visit Provider Internal Medicine
DX: I10 Essential (primary) hypertension (principal); I63.9 Cerebral infarction, unspecified; E78.5 Hyperlipidemia, unspecified
CPT/HCPCS: 80053; 80061; 85025